=== PATIENT | male | born 1960 | race Caucasian/White ===

== ENCOUNTER 2018-08-28 18:35 | Observation (INO) ==
[2018-08-28] MEDS ORDERED: Isovue-370 500 ML BOTTLE IVP ONE (19:42)
--- NOTE | 2018-08-28 19:46 | Emergency Department Note ---
Disposition Clinical Impression: Mass of gastroesophageal junction Disposition: Admitted As Inpatient Condition: Fair Referrals: NONE,PCP [Primary Care Provider] - Forms: ED Satisfaction Letter, Work/School Release Time of Disposition: 22:26 General Adult HPI - General Chief complaint: ED General Medical Stated complaint: Unable to swallow well Time Seen by Provider: 08/28/18 18:58 Source: patient Mode of arrival: ambulatory Limitations: no limitations Nursing Notes Reviewed: Yes Vital Signs Reviewed: Yes - History of Present Illness Pain Scale: 0 - Related Data Home Medications Medication Instructions Recorded Confirmed No Known Home Drugs 08/28/18 08/28/18 Allergies Allergy/AdvReac Type Severity Reaction Status Date / Time No Known Allergies Allergy Verified 08/28/18 19:26 Past Medical History - Past Medical History Medical history: Reports: no medical history Psychiatric history: Reports: no psych history - Social History Smoking Status: Former smoker Smokeless Tobacco Status: No Alcohol use: Reports: none Drug use: Reports: none Physical Exam - General Limitations: no limitations General appearance: alert, in no apparent distress Course Vital Signs Temperature 97.9 F 08/28/18 18:37 Pulse Rate 74 08/28/18 18:37 Respiratory Rate 16 08/28/18 18:37 Blood Pressure 120/81 08/28/18 18:37 O2 Sat by Pulse Oximetry 97 08/28/18 18:37 Temperature 97.9 F 08/28/18 18:37 Pulse Rate 56 08/28/18 21:19 Respiratory Rate 20 08/28/18 21:19 Blood Pressure 114/80 08/28/18 21:19 O2 Sat by Pulse Oximetry 99 08/28/18 21:19 Oxygen Delivery Oxygen Delivery Room Air Medical Decision Making - Lab Data Result diagrams: 08/28/18 19:49 08/28/18 19:49 Lab Results 08/28/18 08/28/18 Range/Units 19:49 19:49 WBC 10.7 (4.3-11.1) K/mcL RBC 5.69 H (4.19-5.50) M/mcL Hgb 16.8 (12.9-16.9) g/dL Hct 48.4 (37.5-50.1) % MCV 85.1 (83.0-100.0) fL MCH 29.5 (28.0-33.3) pg MCHC 34.7 (31.6-35.5) g/dL RDW 12.9 (11.5-14.5) % Plt Count 267 (140-400) K/mcL MPV 10.7 (9.4-12.4) fL Immature Gran % 0.6 (0-4) % Seg Neutrophils % 72.5 % Lymphocytes % 16.9 % Monocytes % 8.2 % Eosinophils % 1.0 % Basophils % 0.8 % Neutrophils # 7.8 (1.6-8.9) K/mcL Lymphocytes # 1.8 (0.6-4.6) K/mcL Monocytes # 0.9 (0.0-1.3) K/mcL Eosinophils # 0.1 (0.0-0.6) K/mcL Basophils # 0.1 (0.0-0.2) K/mcL Sodium 134 L (136-145) mEq/L Potassium 3.7 (3.5-5.1) mEq/L Chloride 98 (98-107) mEq/L Carbon Dioxide 25 (23-29) mEq/L BUN 51 H (6-20) mg/dL Creatinine 1.57 H (0.70-1.30) mg/dL Est GFR ( Amer) 56 L (> 60) Est GFR (Non-Af Amer) 46 L (> 60) BUN/Creatinine Ratio 32 H (6-26) Glucose 115 H (70-105) mg/dL Calculated Osmolality 293 (280-300) Calcium 9.4 (8.6-10.3) mg/dL Magnesium 2.6 (1.6-2.6) mg/dL Attestation Statement - Attestation Attestation: I have seen this patient with the resident physician, I have personally evaluated this patient. I had reviewed the chart and document dictation by the resident physician and aM in agreement with the information documented by the resident physician. Please see documentation by the resident physician for complete chart including past medical history, family medical history, review of systems, current history and physical and laboratory and imaging studies. I was present for all procedures, provided direct supervision for all procedures, was present for the entirety of all procedures and provided direct guidance during the procedures. Please see documentation by the resident physician for any procedures performed. I have reviewed all interpretations of EKGs, and reviewed all EKGs performed on patient's as well. I have also reviewed reports of imaging as provided by radiology. Patient presented emergency department with chief complaint of progressive increasing difficulty with swallowing for the last 3-4 months states that it started as just difficulty with solids, so he switched to eating things like putting and softer foods, states that over the last 1 week had progression to the point now where he feels like the only thing he can get down is water milk and light broth he cannot even get semi-solids down like putting states that jus t feels like he gets stuck. Patient states that he has no pain. He has had no fevers no chills no cough no sputum production no voice changes he does report a greater than 100 pound weight loss over the last year without trying. He is a prior smoker and quit about 1 year ago. He denies fevers chills or night sweats. He denies headache or neck pain he denies voice changes. He denies difficulty breathing. He denies abdominal pain. He states that it feels like stuff gets stuck at the upper portion of his chest and he points towards his sternal notch and just below where it feels like things get stuck. He has had no hair changes. No hot or cold intolerance. No abdominal pain no black or bloody stool no urinary changes. On physical examination he is in no acute distress, cranial nerves are intact, oropharynx is normal, voice is normal there is no stridor. There is no thyromegaly or obvious palpable mass within the neck. No tracheal deviation. Lungs are clear heart is regular abdomen soft and nontender. Skin is warm dry without rash or petechiae. Patient is handling his secretions without difficulty and reports that while it does feel like he has to swallow hard to get his spit to go down it will go down. Basic laboratory studies were ordered, CT scan of the neck and chest were ordered to evaluate for mass. Basic laboratory studies were within acceptable limits apart from a mildly elevated creatinine of 1.6 with an elevated BUNs of 51, he was revived with IV hydration for this. 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 There are some bilateral pulmonary nodules which are nonspecific. Evidence of coronary artery disease and emphysema. Secondary to patient's progressive difficulty with swallowing, with evidence for a tumor, that is likely causing obstruction, as well as his dehydration he will be admitted to the hospital for further evaluation and management,
[2018-08-28 20:28] LABS: Basophils # 0.1 K/mcL (0.0-0.2); Basophils % 0.8 %; Eosinophils # 0.1 K/mcL (0.0-0.6); Hematocrit 48.4 % (37.5-50.1); Hemoglobin 16.8 g/dL (12.9-16.9); Immature Granulocytes % 0.6 % (0-4); Lymphocytes # 1.8 K/mcL (0.6-4.6); Lymphocytes % 16.9 %; Mean Corpuscular HGB Conc 34.7 g/dL (31.6-35.5); Mean Corpuscular Hemoglobin 29.5 pg (28.0-33.3); Mean Corpuscular Volume 85.1 fL (83.0-100.0); Mean Platelet Volume 10.7 fL (9.4-12.4); Monocytes # 0.9 K/mcL (0.0-1.3); Monocytes % 8.2 %; Neutrophils # 7.8 K/mcL (1.6-8.9); Platelet Count 267 K/mcL (140-400); Red Blood Count 5.69 M/mcL (4.19-5.50); Red Cell Distribution Width 12.9 % (11.5-14.5); Segmented Neutrophils % 72.5 %; White Blood Count 10.7 K/mcL (4.3-11.1)
[2018-08-28 20:41] LABS: Calcium 9.4 mg/dL (8.6-10.3); Magnesium 2.6 mg/dL (1.6-2.6); Potassium 3.7 mEq/L (3.5-5.1)
[2018-08-28] MEDS ORDERED: 0.9 % Sodium Chloride 1,000 ML IVC ONE (20:53)
--- NOTE | 2018-08-28 22:21 | Emergency Department Note ---
Disposition Clinical Impression: Mass of gastroesophageal junction Disposition: Admitted As Inpatient Condition: Fair Time of Disposition: 22:25 General Adult HPI - General Chief complaint: ED General Medical Stated complaint: Unable to swallow well Time Seen by Provider: 08/28/18 18:58 Source: patient Mode of arrival: ambulatory Limitations: no limitations Nursing Notes Reviewed: Yes Vital Signs Reviewed: Yes - History of Present Illness HPI Narrative: Patient is a 57-year-old male former smoker presents to the ED for evaluation of difficulty with swallowing. Patient states that the symptoms have been going on for the past few months. He states that he has been unable to swallow solid foods or large amounts of liquids states he is only able to tolerate sips of liquids otherwise he feels like his food is getting stuck or comes back up. He denies any chest pain, back pain, abdominal pain or other associated symptoms. He does report weight loss of over 100 pounds over the past year. Pain Scale: 0 - Related Data Home Medications Medication Instructions Recorded Confirmed No Known Home Drugs 08/28/18 08/28/18 Allergies Allergy/AdvReac Type Severity Reaction Status Date / Time No Known Allergies Allergy Verified 08/28/18 22:57 All systems ED: reviewed and negative except as stated. Review of Systems: As Per HPI Constitutional: Denies: fever, chills Cardiovascular: Reports: other (Dysphagia). Denies: chest pain, palpitations, dyspnea on exertion Respiratory: Denies: cough, dyspnea, wheezes Past Medical History - Past Medical History Attestation: Yes The following information was validated with the patient. Medical history: Reports: no medical history Psychiatric history: Reports: no psych history - Social History Smoking Status: Former smoker Smokeless Tobacco Status: No Alcohol use: Reports: none Drug use: Reports: none Physical Exam CONSTITUTIONAL: A&O X 3, in no apparent distress HEAD: Normocephalic; atraumatic EYES: PERRL, no scleral icterus NOSE: The nose is normal in appearance without rhinorrhea NECK: No JVD or distended neck veins RESP: Normal chest excursion with respiration; breath sounds clear and equal bilaterally; no wheezes, rhonchi, or rales CARD: Regular rhythm, without murmurs, rub or gallop ABD: Non-distended; non-tender, soft, without rigidity, rebound or guarding,no pulsatile mass CHEST: No pain with palpation SKIN: Normal for age and race; warm and dry without diaphoresis ; no apparent lesions EXTREMITIES: Pulses are 2 plus and equal times 4 extremities, no peripheral edema or calf muscle pain - General Limitations: no limitations General appearance: alert, in no apparent distress Course Course Narrative: Patient presents for admission of difficulty swallowing specially solid foods. Given his history of smoking as well as his weight loss over the past year there is concern for malignancy versus esophageal stricture. Patient undergo evaluation of basic labs and then CT scan to evaluate for mass. - Reevaluation(s) Reevaluation #1: Patient's CT scan findings of the chest and soft tissue of the neck are consistent with a tumor at the GE junction and proximal stomach with metastatic upper abdominal adenopathy mediastinal lymph nodes are indeterminate. Patient also has bilateral pulmonary nodules that are nonspecific. Patient's lab work was significant for elevation of creatinine and decreased GFR which I am unsure of patient's baseline however he does also have elevation of his BUNs suspect component of dehydration given his inability to tolerate by mouth. Discussed with patient given his symptoms need to come in for further evaluation. Vital Signs Temperature 97.9 F 08/28/18 18:37 Pulse Rate 74 08/28/18 18:37 Respiratory Rate 16 08/28/18 18:37 Blood Pressure 120/81 08/28/18 18:37 O2 Sat by Pulse Oximetry 97 08/28/18 18:37 Temperature 97.9 F 08/28/18 18:37 Pulse Rate 56 08/28/18 21:19 Respiratory Rate 20 08/28/18 21:19 Blood Pressure 114/80 08/28/18 21:19 O2 Sat by Pulse Oximetry 99 08/28/18 21:19 Oxygen Delivery Oxygen Delivery Room Air Medical Decision Making - Medical Records Medical records reviewed: Yes I reviewed the patient's medical records. - Lab Data Lab results reviewed: Yes I reviewed the patient's lab results. Result diagrams: 08/28/18 19:49 08/29/18 01:13 Lab Results 08/28/18 08/28/18 Range/Units 19:49 19:49 WBC 10.7 (4.3-11.1) K/mcL RBC 5.69 H (4.19-5.50) M/mcL Hgb 16.8 (12.9-16.9) g/dL Hct 48.4 (37.5-50.1) % MCV 85.1 (83.0-100.0) fL MCH 29.5 (28.0-33.3) pg MCHC 34.7 (31.6-35.5) g/dL RDW 12.9 (11.5-14.5) % Plt Count 267 (140-400) K/mcL MPV 10.7 (9.4-12.4) fL Immature Gran % 0.6 (0-4) % Seg Neutrophils % 72.5 % Lymphocytes % 16.9 % Monocytes % 8.2 % Eosinophils % 1.0 % Basophils % 0.8 % Neutrophils # 7.8 (1.6-8.9) K/mcL Lymphocytes # 1.8 (0.6-4.6) K/mcL Monocytes # 0.9 (0.0-1.3) K/mcL Eosinophils # 0.1 (0.0-0.6) K/mcL Basophils # 0.1 (0.0-0.2) K/mcL Sodium 134 L (136-145) mEq/L Potassium 3.7 (3.5-5.1) mEq/L Chloride 98 (98-107) mEq/L Carbon Dioxide 25 (23-29) mEq/L BUN 51 H (6-20) mg/dL Creatinine 1.57 H (0.70-1.30) mg/dL Est GFR ( Amer) 56 L (> 60) Est GFR (Non-Af Amer) 46 L (> 60) BUN/Creatinine Ratio 32 H (6-26) Glucose 115 H (70-105) mg/dL Calculated Osmolality 293 (280-300) Calcium 9.4 (8.6-10.3) mg/dL Magnesium 2.6 (1.6-2.6) mg/dL - Radiology Data Radiology results reviewed: Yes I reviewed the patient's radiology results. Chest CT 08/28/18 19:42 IMPRESSION: 1. 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 Mediastinal lymph nodes are indeterminate. 2. Bilateral pulmonary nodules are nonspecific. These are mostly flattened nodules which is somewhat unusual for metastatic disease and may represent benign nodules. Fleischner criteria do not apply in a patient with a primary tumor. 3. Coronary artery disease. 4. Emphysema. 5. Secretion or tracheal polyp. Attention on follow-up imaging is recommended. D/ / Jeffy Gregory MD / Jeffy Gregory MD Interpreting Provider: Jeffy Gregory MD Soft Tissue Neck CT 08/28/18 19:42 IMPRESSION: No acute abnormality of the soft tissue structures of the neck. Fluid distension of the entire visualized intrathoracic esophagus. Correlation with CT chest performed today is recommended. Distal obstructing mass is a concern. Endoscopy is recommended. Emphysema. Enlarged mediastinal lymph node. D/ / Edda Zayas Cha, MD / Edda Zayas Cha, MD Interpreting Provider: Edda Zayas Cha, MD Attestation Statement - Attestation Attestation: I have seen this patient with the resident physician, I have personally evaluated this patient. I had reviewed the chart and document dictation by the resident physician and aM in agreement with the information documented by the resident physician. Please see documentation by the resident physician for complete chart including past medical history, family medical history, review of systems, current history and physical and laboratory and imaging studies. I was present for all procedures, provided direct supervision for all procedures, was present for the entirety of all procedures and provided direct guidance during the procedures. Please see documentation by the resident physician for any procedures performed. I have reviewed all interpretations of EKGs, and reviewed all EKGs performed on patient's as well. I have also reviewed reports of imaging as provided by radiology.
--- NOTE | 2018-08-29 01:09 | Internal Med History&Physical ---
Date of Encounter: 08/29/18 Time of Encounter: 01:07 Internal Medicine - H&P: HPI Chief complaint: dysphagia Admitted From: Home Plans for Post Hospital Care: Home History of present illness: Manjeet Gonzales is a 57-year-old man who reports a greater than 2 pack a day smoking history for more than 30 years and quit one year ago but since then has noticed progressive unintentional weight loss. He says he has lost about 100 pounds in this time. He also complains of difficulty swallowing over the past several months initially with solid food being able to go down and now more recently with soft items such as pudding and mashed potatoes. He is now only able to tolerate clear liquids. He says even if he were to take broth or milk he will need to take it in very slowly. He says when he does take substances with more consistency he would regurgitate them after a long period of time and noticed a pasty foul smelling content. 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 He is admitted for further care. He denies any medical history and says he has not seen a doctor in over 15 years. Vitals: Reviewed General: White man who appears older than stated age, lying in bed in no acute distress. Skin: Warm and dry. Pale. HEENT: Moist mucous membranes. No conjunctivae pallor. Neck: No JVD. No carotid bruits. No palpable thyroid. Chest: Normal thoracic expansion. Normal breath sounds. Clear to auscultation. Heart: Normal S1 & S2; rhythmic. No rubs or murmurs. Abdomen: Excavated, soft and nontender to palpation. Extremities: No cyanosis or edema. No calf tenderness. Normal distal pulses. Neurological: Awake, alert and oriented to person, place and time. No focal deficits. Psych: Affect appropriate. Assessment/Plan 1. Dysphagia: Initially to solids and now to liquids in a patient with longstanding smoking history accompanied by 100lbs weight loss giving concerns for an esophageal malignancy. Findings on CT suggest this. Will need GI consultation for a diagnostic endoscopy to be performed today. Will ultimately require oncology and palliative consultations. Will place on D5LR, clear liquids as tolerated and nutrition consult. 2. DVT prophylaxis: Subq heparin. Past Med Surg Social Fam HX - Past Medical History Medical history: no medical history Psychiatric history: no psych history - Past Surgical History Surgical History: no surgical history - Social History Smoking Status: Former smoker Smokeless Tobacco Status: No Alcohol use: none Drug use: none - Family History Father Living Status: Age at : 59 Hx Family Cancer: Yes Mother Living Status: Still Living Hx Family Cancer: Yes (skin cancer) Internal Medicine - H&P: Meds No Known Home Drugs 08/28/18 [History] Allergy/AdvReac Type Severity Reaction Status Date / Time No Known Allergies Allergy Verified 08/28/18 22:57 All Systems PM: A 10-system review of systems was performed and is negative for pertinent findings except as documented above in the HPI. Family history reviewed and found non-contributory. - Constitutional Vitals: Temp Pulse Resp BP Pulse Ox 97.6 F 60 17 127/79 96 08/28/18 23:57 08/28/18 23:57 08/28/18 23:57 08/28/18 23:57 08/28/18 23:57 Exam: . Internal Med - H&P Results - Labs CBC & Chem 7: 08/28/18 19:49 08/28/18 19:49 Labs: Short CBC 08/28/18 Range/Units 19:49 WBC 10.7 (4.3-11.1) K/mcL Hgb 16.8 (12.9-16.9) g/dL Hct 48.4 (37.5-50.1) % Plt Count 267 (140-400) K/mcL Neutrophils # 7.8 (1.6-8.9) K/mcL BMP 08/28/18 19:49 Sodium 134 L Potassium 3.7 Chloride 98 Carbon Dioxide 25 BUN 51 H Creatinine 1.57 H Glucose 115 H Calcium 9.4 - Impressions ITS Impressions Chest CT 08/28/18 19:42 IMPRESSION: 1. 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 Mediastinal lymph nodes are indeterminate. 2. Bilateral pulmonary nodules are nonspecific. These are mostly flattened nodules which is somewhat unusual for metastatic disease and may represent benign nodules. Fleischner criteria do not apply in a patient with a primary tumor. 3. Coronary artery disease. 4. Emphysema. 5. Secretion or tracheal polyp. Attention on follow-up imaging is recommended. D/ / Jeffy Gregory MD / Jeffy Gregory MD Interpreting Provider: Jeffy Gregory MD Soft Tissue Neck CT 08/28/18 19:42 IMPRESSION: No acute abnormality of the soft tissue structures of the neck. Fluid distension of the entire visualized intrathoracic esophagus. Correlation with CT chest performed today is recommended. Distal obstructing mass is a concern. Endoscopy is recommended. Emphysema. Enlarged mediastinal lymph node. D/ / Edda Zayas Cha, MD / Edda Zayas Cha, MD Interpreting Provider: Edda Zayas Cha, MD - Time Spent With Patient Total time spent is greater than 50% in coordination of care (as documented) at patient's floor/unit and/or counseling patient: Greater than 35 minutes
[2018-08-29] MEDS: D5% in Lactated Ringers 1,000 ML IVC SCH ×2 (01:30→11:55)
[2018-08-29 01:55] LABS: INR 1.3; Prothrombin Time 14.4 Seconds (9.4-12.1)
[2018-08-29 01:57] LABS: Activated Partial Thrombo Time 31.6 Seconds (26.0-36.0)
[2018-08-29 02:09] LABS: BUN/Creatinine Ratio 31 (6-26); Blood Urea Nitrogen 45 mg/dL (6-20); Calcium 8.9 mg/dL (8.6-10.3); Carbon Dioxide 25 mEq/L (23-29); Chloride 101 mEq/L (98-107); Glucose 95 mg/dL (70-105); Osmolality,Calculated 293 (280-300); Potassium 3.4 mEq/L (3.5-5.1); Sodium 136 mEq/L (136-145); eGFR For African Americans > 60 (> 60); eGFR For Non-African Americans 50 (> 60)
[2018-08-29] MEDS ORDERED: Potassium Chloride Elixir 20 MEQ/15 ML UDC PO ONE (03:37)
[2018-08-29] MEDS: *HR* Heparin 5,000 UNIT/ML VIAL SQ SCH ×2 (06:09→18:03)
--- NOTE | 2018-08-29 09:39 | Internal Med Progress Note ---
<Harley Christina - Last Filed: 08/29/18 16:56> Hospitalist Progress Note - Encounter Date of Encounter: 08/29/18 Time of Encounter: 09:36 - Subjective Interval History: Pt seen and examined. Afebrile, lying comfortably in bed. Denies any pain, SOB, constipation, diarrhea, abdominal pain. Reports increased urination since starting IV fluids. Plan for EGD today, due to esophageal/gastric mass. Pt reports symptoms frst began arouind 6 months ago with vomiting following meals. He has lost about 100 lbs over the past year. He says wweight loss began after he quit smoking in August 2017, since then his energy has improved, and he has felt more healthy overall. - Exam Vitals: Temp Pulse Resp BP Pulse Ox 98 F 64 16 118/74 97 08/29/18 07:00 08/29/18 07:00 08/29/18 07:00 08/29/18 07:00 08/29/18 07:00 Exam: Gen: Vitals noted. No acute distress. Eyes: anicteric sclerae, moist conjunctivae; no lid-lag; Pupils equal and reactive to light HENT: Atraumatic, normocephalic; oropharynx clear with moist mucous membranes and no mucosal ulcerations Neck: Trachea midline; supple, no thyromegaly or lymphadenopathy Cardiac: RRR, no murmurs, rubs or gallops, S1/S2 Pulmonary: CTA bilaterally, no wheezes, rales or rhonchi, equal chest expansion Abdomen: soft, concave, non-tender, no rigidity or guarding. No masses or hepatosplenomegaly MSK: ROM intact, no joint swelling noted Extremities: no BLE edema, nontender calf, no cyanosis or clubbing Skin: Normal temperature, turgor and texture; no rash, ulcers or subcutaneous nodules Neuro: moves all extremities, no focal deficits. Psych: Appropriate mood and behavior. A&Ox3 - Assessment and Plan (1) Mass of gastroesophageal junction Current Visit: Yes Status: Acute Assessment and Plan: Mass of esophageal junction -Hx of progressively worsening dysphagia -Only able to tolerate thin liquids for the past few days -~100 lb weight loss over the past 8 months -CT chest: Tumor at gartroesophageal junction and proximal stomach -GI consult: EGD to rule out esophagitis, malignancy, gastritis, duodenitis, PUD, MW tear, or AVM. Plan: -EGD: Malignant appearing mass in distal esophagus. Biopsies for histology and brushes for cytology taken -Full liquid diet+ensure -Plan for follow-up with Heme/onc with path report (2) Protein calorie malnutrition Current Visit: Yes Status: Acute Assessment and Plan: Pt presenting with dysphasia -Dietitian assessment: Severe protein-calorie malnutrition -Can tolerate clear liquids very slowly Plan: -Try ensure clear/enlive -6-7 bottles per day DVT Prophylaxis: SQ Heparin - Summary of Assessment and Plan Summary of Assessment and Plan: 57 yo male with no significant PMH. Presenting with dysphagia. Esphogeal/proximal stomach mass noted on CT. Going for EGD. - Time Spent with Patient Total time spent is greater than 50% in coordination of care (as documented) at patient's floor/unit and/or counseling patient: Internal Medicine: Result - Labs CBC & Chem 7: 08/28/18 19:49 08/29/18 01:13 Labs: Short CBC 08/28/18 Range/Units 19:49 WBC 10.7 (4.3-11.1) K/mcL Hgb 16.8 (12.9-16.9) g/dL Hct 48.4 (37.5-50.1) % Plt Count 267 (140-400) K/mcL Neutrophils # 7.8 (1.6-8.9) K/mcL BMP 08/28/18 08/29/18 19:49 01:13 Sodium 134 L 136 Potassium 3.7 3.4 L Chloride 98 101 Carbon Dioxide 25 25 BUN 51 H 45 H Creatinine 1.57 H 1.47 H Glucose 115 H 95 Calcium 9.4 8.9 - ABG Interpretation ABG results: PT/INR, D-dimer PT 14.4 Seconds (9.4-12.1) H 08/29/18 01:13 - Impressions Impressions Chest CT 08/28/18 19:42 IMPRESSION: 1. 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 Mediastinal lymph nodes are indeterminate. 2. Bilateral pulmonary nodules are nonspecific. These are mostly flattened nodules which is somewhat unusual for metastatic disease and may represent benign nodules. Fleischner criteria do not apply in a patient with a primary tumor. 3. Coronary artery disease. 4. Emphysema. 5. Secretion or tracheal polyp. Attention on follow-up imaging is recommended. D/ / Jeffy Gregory MD / Jeffy Gregory MD Interpreting Provider: Jeffy Gregory MD Soft Tissue Neck CT 08/28/18 19:42 IMPRESSION: No acute abnormality of the soft tissue structures of the neck. Fluid distension of the entire visualized intrathoracic esophagus. Correlation with CT chest performed today is recommended. Distal obstructing mass is a concern. Endoscopy is recommended. Emphysema. Enlarged mediastinal lymph node. D/ / Edda Zayas Cha, MD / Edda Zayas Cha, MD Interpreting Provider: Edda Zayas Cha, MD Consult Discharge Plan - Plan Referrals: NONE,PCP [Primary Care Provider] - <Rufino Bundy - Last Filed: 08/29/18 18:43> Hospitalist Progress Note - Encounter Date of Encounter: 08/29/18 - Exam Vitals: Temp Pulse Resp BP Pulse Ox 97.6 F 44 18 108/65 96 08/29/18 17:15 08/29/18 17:15 08/29/18 17:15 08/29/18 17:15 08/29/18 17:15 - Time Spent with Patient Total time spent is greater than 50% in coordination of care (as documented) at patient's floor/unit and/or counseling patient: Internal Medicine: Result - Labs CBC & Chem 7: 08/28/18 19:49 08/29/18 01:13 Labs: Short CBC 08/28/18 Range/Units 19:49 WBC 10.7 (4.3-11.1) K/mcL Hgb 16.8 (12.9-16.9) g/dL Hct 48.4 (37.5-50.1) % Plt Count 267 (140-400) K/mcL Neutrophils # 7.8 (1.6-8.9) K/mcL BMP 08/28/18 08/29/18 19:49 01:13 Sodium 134 L 136 Potassium 3.7 3.4 L Chloride 98 101 Carbon Dioxide 25 25 BUN 51 H 45 H Creatinine 1.57 H 1.47 H Glucose 115 H 95 Calcium 9.4 8.9 - ABG Interpretation ABG results: PT/INR, D-dimer PT 14.4 Seconds (9.4-12.1) H 08/29/18 01:13 - Impressions Impressions Chest CT 08/28/18 19:42 IMPRESSION: 1. 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 Mediastinal lymph nodes are indeterminate. 2. Bilateral pulmonary nodules are nonspecific. These are mostly flattened nodules which is somewhat unusual for metastatic disease and may represent benign nodules. Fleischner criteria do not apply in a patient with a primary tumor. 3. Coronary artery disease. 4. Emphysema. 5. Secretion or tracheal polyp. Attention on follow-up imaging is recommended. D/ / Jeffy Gregory MD / Jeffy Gregory MD Interpreting Provider: Jeffy Gregory MD Soft Tissue Neck CT 08/28/18 19:42 IMPRESSION: No acute abnormality of the soft tissue structures of the neck. Fluid distension of the entire visualized intrathoracic esophagus. Correlation with CT chest performed today is recommended. Distal obstructing mass is a concern. Endoscopy is recommended. Emphysema. Enlarged mediastinal lymph node. D/ / Edda Zayas Cha, MD / Edda Zayas Cha, MD Interpreting Provider: Edda Zayas Cha, MD - Attending Attestation I have seen and independently assessed this patient and I agree with plan as documented Plan Esophageal mass. S/p endoscopy today showing malignant appearing stenosis. Barium swallow in am per GI. Check CEA levels
--- NOTE | 2018-08-29 12:34 | Gastroenterology Consult Note ---
Date of Encounter: 08/29/18 Time of Encounter: 10:20 - Assessment and plan (1) Mass of gastroesophageal junction Current Visit: Yes Status: Acute Assessment and plan: CT chest consistent with tumor at GE junction and proximal stomach with metastatic abdominal adenopathy. CT neck soft tissue shows fluid distention of entire visualized intrathoracic esophagus concerning for distal obstructing mass. Keep patient NPO. EGD today to r/o esophagitis, malignancy, gastritis, duodenitis, PUD, MW tear, or AVM. - Time Spent With Patient Total time spent is greater than 50% in coordination of care (as documented) at patient's floor/unit and/or counseling patient: GI History of Present Illness - Data of Consult Patient: new to practice Consult date: 08/29/18 Requesting Physician: Blade Schilling MD - Consult Narrative Reason for consult: 100 lbs weight loss, dysphagia History of present illness: Mr. Gonzales is a 57 year old male with PMHx of greater than 2 pack a day smoking history for more than 30 years and quit one year ago but since then has noticed progressive unintentional weight loss of over 100 lbs. He also complains of difficulty swallowing which has worsened over the past few months. He is now only able to tolerate clear liquids. CT chest consistent with tumor at GE junction and proximal stomach with metastatic abdominal adenopathy. CT neck soft tissue shows fluid distention of entire visualized intrathoracic esophagus concerning for distal obstructing mass. Procedures: None NSAIDs: None Anticoagulation: None Past Med Surg Social Fam HX - Past Medical History Medical history: no medical history Psychiatric history: no psych history - Past Surgical History Surgical History: no surgical history - Social History Smoking Status: Former smoker Smokeless Tobacco Status: No Alcohol use: none Drug use: none - Family History Father Living Status: Age at : 59 Hx Family Cancer: Yes Mother Living Status: Still Living Hx Family Cancer: Yes (skin cancer) - Gastrointestinal Gastrointestinal: Present: as per HPI - Constitutional Constitutional: as per HPI - EENT Eyes: as per HPI Ears: Present: as per HPI Nose, mouth and throat: Present: as per HPI - Cardiovascular Cardiovascular ROS: Present: as per HPI - Respiratory Respiratory IM: Present: as per HPI - Genitourinary Genitourinary: Absent: change in color, Urinary frequency - Neurological ROS Neurological GI: Present: as per HPI - Hematologic/Lymphatic Hematologic/Lymphatic pediatric: Present: as per HPI - Musculoskeletal Musculoskeletal ROS GI: Present: as per HPI - Integumentary Integumentary GI: Present: as per HPI - Psychiatric ROS Psychiatric GI: Present: as per HPI - Endocrine Endocrine IM: Present: as per HPI - Constitutional Vitals: Temp Pulse Resp BP Pulse Ox 97.9 F 58 16 107/58 96 08/29/18 10:49 08/29/18 10:49 08/29/18 10:49 08/29/18 10:49 08/29/18 10:49 General appearance: Present: cooperative, A&O X 3, no acute distress, answers questions appropriately - Head Head exam: Present: atraumatic, normocephalic - Eye Eye exam: Present: normal appearance, sclera anicteric - ENT ENT exam: Present: mucous membranes moist - Neck Neck exam general surgery: Present: normal inspection, trachea midline - Respiratory Respiratory exam: Present: decreased breath sounds, CTAB - Cardiovascular Cardiovascular exam: Present: RRR, +S1, +S2 - GI/Abdominal GI/Abdominal exam: Present: soft, no peritoneal signs. Absent: distended, firm, guarding, tenderness - Rectal Rectal exam: Present: deferred - Extremities Exam Extremities exam: Present: warm - Neurological Exam Neurological exam: Present: no focal deficits - Psychiatric Psychiatric exam: Present: normal affect, normal mood - Skin Skin exam: Present: dry, intact, normal color, warm Results - Labs CBC & Chem 7: 08/28/18 19:49 08/29/18 01:13 Labs: Last Result 08/29/18 01:13 Calcium 8.9 Entire Visit 08/29/18 01:13 PT 14.4 H - ABG ABG results: PT/INR, D-dimer PT 14.4 Seconds (9.4-12.1) H 08/29/18 01:13 - Impressions Impressions Chest CT 08/28/18 19:42 IMPRESSION: 1. 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 Mediastinal lymph nodes are indeterminate. 2. Bilateral pulmonary nodules are nonspecific. These are mostly flattened nodules which is somewhat unusual for metastatic disease and may represent benign nodules. Fleischner criteria do not apply in a patient with a primary tumor. 3. Coronary artery disease. 4. Emphysema. 5. Secretion or tracheal polyp. Attention on follow-up imaging is recommended. D/ / Jeffy Gregory MD / Jeffy Gregory MD Interpreting Provider: Jeffy Gregory MD Soft Tissue Neck CT 08/28/18 19:42 IMPRESSION: No acute abnormality of the soft tissue structures of the neck. Fluid distension of the entire visualized intrathoracic esophagus. Correlation with CT chest performed today is recommended. Distal obstructing mass is a concern. Endoscopy is recommended. Emphysema. Enlarged mediastinal lymph node. D/ / Edda Zayas Cha, MD / Edda Zayas Cha, MD Interpreting Provider: Edda Zayas Cha, MD Consult Discharge Plan - Plan Referrals: NONE,PCP [Primary Care Provider] -
[2018-08-29] MEDS ORDERED: *HR* Propofol 200 MG/20 ML VIAL IVP ONE ×2 (13:45→13:54)
[2018-08-29] MEDS ORDERED: Lidocaine -MPF 2% 2 ML VIAL ONE (13:54)
[2018-08-29] MEDS: 0.9 % Sodium Chloride 500 ML IVC SCH (14:25)
--- NOTE | 2018-08-29 14:27 | Anesthesia Evaluation PreOp ---
Date of Encounter: 08/29/18 Time of Encounter: 14:25 - Past History Planned Operation: EGD Cardiac History: Denies any Significant Hx Pulmonary History: Former smoker (quit 1 year ago, smoked for 40 years) WATER CHASER History: Denies Any Significant HX Other Medical History: Denies Any Significant HX Anesthesia History: Past Anesthesia (no prior GA) Alcohol Use: none Drug use: none Medications and Allergies No Known Home Drugs 08/28/18 [History] Allergy/AdvReac Type Severity Reaction Status Date / Time No Known Allergies Allergy Verified 08/28/18 22:57 - Meds/Allergy Pre-op Review Medications Reviewed: Yes Allergies Reviewed: Yes Beta Blockers on Current Med List: No Anesthesia Results - Labs 08/28/18 19:49 08/29/18 01:13 Anesthesia Exam Vital Signs/O2 Sat/Glucose, Most Recent Temp Pulse Resp BP Pulse Ox 97.9 F 50 16 117/76 97 08/29/18 10:49 08/29/18 14:21 08/29/18 14:21 08/29/18 14:21 08/29/18 14:21 Blood Glucose* 80 Height: 5'11''/1.8m Weight: 166 lbs/75.7 kg NPO (# of Hours): 8 Pain Scale: 0 Pain Scale Used: Numeric (1 - 10) - HEENT Pupil (Motor): EOMI Mallampati: II Teeth: Normal, Missing Oral Opening: Greater than 3 - WATER CHASER LOC: Oriented WATER CHASER Motor: Normal RUE, Normal LUE, Normal RLE, Normal LLE, Normal Face WATER CHASER Sensory: Normal: RUE, LUE, RLE, LLE, Face - Cardiac Rhythm: Regular Murmur: None - Pulmonary Breath Sounds: bilateral Clear Respiratory Effort: Symmetrical Anesthesia Assess/Plan ASA Score: 2 Level of consciousness: Cooperative, Oriented, Tranquil Anesthetic Plan: MAC Monitoring Plan: Standard Monitors
[2018-08-30] MEDS: 0.9 % Sodium Chloride 500 ML IVC SCH ×3 (00:39→22:29)
[2018-08-30 01:46] LABS: Basophils % 0.7 %; Eosinophils # 0.2 K/mcL (0.0-0.6); Eosinophils % 2.8 %; Hematocrit 39.4 % (37.5-50.1); Immature Granulocytes % 0.3 % (0-4); Lymphocytes # 1.8 K/mcL (0.6-4.6); Lymphocytes % 29.7 %; Mean Corpuscular HGB Conc 35.3 g/dL (31.6-35.5); Mean Corpuscular Hemoglobin 30.1 pg (28.0-33.3); Mean Corpuscular Volume 85.3 fL (83.0-100.0); Mean Platelet Volume 10.5 fL (9.4-12.4); Monocytes # 0.5 K/mcL (0.0-1.3); Monocytes % 7.8 %; Neutrophils # 3.6 K/mcL (1.6-8.9); Platelet Count 177 K/mcL (140-400); Red Blood Count 4.62 M/mcL (4.19-5.50); Segmented Neutrophils % 58.7 %; White Blood Count 6.1 K/mcL (4.3-11.1)
[2018-08-30 01:48] LABS: Hemoglobin 13.9 g/dL (12.9-16.9)
[2018-08-30 02:05] LABS: BUN/Creatinine Ratio 28 (6-26); Blood Urea Nitrogen 25 mg/dL (6-20); Carbon Dioxide 24 mEq/L (23-29); Chloride 107 mEq/L (98-107); Glucose 86 mg/dL (70-105); Osmolality,Calculated 290 (280-300); Potassium 3.3 mEq/L (3.5-5.1); Sodium 138 mEq/L (136-145); eGFR For African Americans > 60 (> 60); eGFR For Non-African Americans > 60 (> 60)
[2018-08-30] MEDS: *HR* Heparin 5,000 UNIT/ML VIAL SQ SCH ×2 (05:52→16:47)
--- NOTE | 2018-08-30 08:34 | Internal Med Progress Note ---
<Harley Christina - Last Filed: 08/30/18 17:39> Hospitalist Progress Note - Encounter Date of Encounter: 08/30/18 Time of Encounter: 08:33 - Subjective Interval History: Patient seen and examined. Reports feeling about the same this morning. He attempted to eat last night for liquid diet with ensure, could not keep it down and vomited most of it up. Patient informed of EGD results noting mass in distal esophagus and proximal stomach. Patient denies headache, fever, chills, shortness of breath, abdominal pain, constipation, diarrhea, change in urination. Patient will have barium swallow performed this morning. - Exam Vitals: Temp Pulse Resp BP Pulse Ox 98.5 F 58 16 134/67 96 08/30/18 06:30 08/30/18 06:30 08/30/18 06:30 08/30/18 06:30 08/30/18 06:30 Exam: Gen: Vitals noted. No acute distress. Eyes: anicteric sclerae, moist conjunctivae; no lid-lag; Pupils equal and reactive to light HENT: Atraumatic, normocephalic; oropharynx clear with moist mucous membranes and no mucosal ulcerations Neck: Trachea midline; supple, no thyromegaly or lymphadenopathy Cardiac: RRR, no murmurs, rubs or gallops, S1/S2 Pulmonary: CTA bilaterally, no wheezes, rales or rhonchi, equal chest expansion Abdomen: soft, concave, non-tender, no rigidity or guarding. No masses or hepatosplenomegaly MSK: ROM intact, no joint swelling noted Extremities: no BLE edema, nontender calf, no cyanosis or clubbing Skin: Normal temperature, turgor and texture; no rash, ulcers or subcutaneous nodules Neuro: moves all extremities, no focal deficits. Psych: Appropriate mood and behavior. A&Ox3 - Assessment and Plan (1) Mass of gastroesophageal junction Current Visit: Yes Status: Acute Assessment and Plan: Mass of esophageal junction -Hx of progressively worsening dysphagia -Only able to tolerate thin liquids for the past few days -~100 lb weight loss over the past 8 months -CT chest: Tumor at gartroesophageal junction and proximal stomach -GI consult: EGD: Malignant appearing esophageal mass -Barium swallow: no contrast passing into stomach Plan: -Path pending -Full liquid diet+ensure -Plan for follow-up with Heme/onc with path report -Attempt liquid diet -may need to consult surgery for Feeding tube (2) Protein calorie malnutrition Current Visit: Yes Status: Acute Assessment and Plan: Pt presenting with dysphasia -Dietitian assessment: Severe protein-calorie malnutrition -Can tolerate clear liquids very slowly -Dietary following Plan: -Try ensure clear/enlive -6-7 bottles per day -May need surgical intervention for feeding tube (3) Hypokalemia Current Visit: Yes Status: Acute Assessment and Plan: Hypokalemia -secondary to reduced PO intake Plan: -Replace as needed -Follow up BMP DVT Prophylaxis: SQ Heparin - Summary of Assessment and Plan Summary of Assessment and Plan: 57 yo male with no significant PMH. Presenting with dysphagia. Esphogeal/pro ximal stomach mass noted on CT. EDG performed, awaiting path results. - Time Spent with Patient Total time spent is greater than 50% in coordination of care (as documented) at patient's floor/unit and/or counseling patient: Internal Medicine: Result - Labs CBC & Chem 7: 08/30/18 00:56 08/30/18 00:56 Labs: Short CBC 08/30/18 Range/Units 00:56 WBC 6.1 (4.3-11.1) K/mcL Hgb 13.9 D (12.9-16.9) g/dL Hct 39.4 (37.5-50.1) % Plt Count 177 (140-400) K/mcL Neutrophils # 3.6 (1.6-8.9) K/mcL BMP 08/30/18 00:56 Sodium 138 Potassium 3.3 L Chloride 107 Carbon Dioxide 24 BUN 25 H Creatinine 0.90 Glucose 86 Calcium 8.0 L - ABG Interpretation ABG results: PT/INR, D-dimer PT 14.4 Seconds (9.4-12.1) H 08/29/18 01:13 Consult Discharge Plan - Plan Referrals: NONE,PCP [Primary Care Provider] - <Rufino Bundy - Last Filed: 08/30/18 18:33> Hospitalist Progress Note - Encounter Date of Encounter: 08/30/18 - Exam Vitals: Temp Pulse Resp BP Pulse Ox 99.1 F 52 16 111/61 94 08/30/18 11:04 08/30/18 11:04 08/30/18 11:04 08/30/18 11:04 08/30/18 11:04 - Time Spent with Patient Total time spent is greater than 50% in coordination of care (as documented) at patient's floor/unit and/or counseling patient: Internal Medicine: Result - Labs CBC & Chem 7: 08/30/18 00:56 08/30/18 00:56 Labs: Short CBC 08/30/18 Range/Units 00:56 WBC 6.1 (4.3-11.1) K/mcL Hgb 13.9 D (12.9-16.9) g/dL Hct 39.4 (37.5-50.1) % Plt Count 177 (140-400) K/mcL Neutrophils # 3.6 (1.6-8.9) K/mcL BMP 08/30/18 00:56 Sodium 138 Potassium 3.3 L Chloride 107 Carbon Dioxide 24 BUN 25 H Creatinine 0.90 Glucose 86 Calcium 8.0 L - ABG Interpretation ABG results: PT/INR, D-dimer PT 14.4 Seconds (9.4-12.1) H 08/29/18 01:13 - Impressions Impressions Barium Swallow X-Ray 08/30/18 07:00 IMPRESSION: 1. No obvious mucosal abnormality is identified on single contrast evaluation. 2. Significant narrowing at the GE junction. No contrast passed from the esophagus into the stomach after 7 minutes. The exam was then terminated. 3. Barium pill was not assessed due to inability of liquids to pass beyond the GE junction. D/ / 08/30/2018 10:26:10 [place] Nava MD / yolanda Interpreting Provider: [place] Nava MD - Attending Attestation I have seen and independently assessed this patient and I agree with plan as documented Plan Esophageal mass. S/p endoscopy today showing malignant appearing stenosis. Barium swallow performed today showed significant stenosis. Discussed with GI, james continue liquid diet and if he tolerates, will f/u outpatient with GI for coordination of oncology and surgery f/u, otherwise may need pEG tube inpatient
[2018-08-30] MEDS ORDERED: Potassium Phosphate 44 MEQ in 0.9 % Sodium Chloride 250 ML IVPB ONE (08:35)
[2018-08-30] MEDS ORDERED: E-Z-HD (BARIUM SULF) SUSPENSION PO ONE (09:29)
[2018-08-30] MEDS ORDERED: Simethicone/Sodium Bic/Citr Ac 1 EACH GRAN.EF.PK PO ONE (09:29)
[2018-08-31 02:42] LABS: BUN/Creatinine Ratio 26 (6-26); Blood Urea Nitrogen 26 mg/dL (6-20); Calcium 8.3 mg/dL (8.6-10.3); Carbon Dioxide 24 mEq/L (23-29); Chloride 107 mEq/L (98-107); Glucose 71 mg/dL (70-105); Osmolality,Calculated 293 (280-300); Potassium 3.8 mEq/L (3.5-5.1); Sodium 140 mEq/L (136-145); eGFR For African Americans > 60 (> 60); eGFR For Non-African Americans > 60 (> 60)
[2018-08-31] MEDS: *HR* Heparin 5,000 UNIT/ML VIAL SQ SCH (05:31)
[2018-08-31] MEDS: 0.9 % Sodium Chloride 500 ML IVC SCH (05:31)
--- NOTE | 2018-08-31 08:56 | Internal Med Progress Note ---
<CarriHarley L - Last Filed: 08/31/18 08:57> Hospitalist Progress Note - Encounter Date of Encounter: 08/31/18 Time of Encounter: 08:54 - Subjective Interval History: She is seen and examined this morning. Afebrile, no overnight events. Patient reports feeling well this morning. He has been able to keep down some liquids, including whole milk, coffee, and ensure. He has not been able to keep down any thicker foods such as oatmeal. Denies headache, shortness of breath, abdominal pain, constipation, diarrhea, changes in urination. - Exam Vitals: Temp Pulse Resp BP Pulse Ox 97.6 F 66 18 119/77 98 08/31/18 06:31 08/31/18 06:31 08/31/18 06:31 08/31/18 06:31 08/31/18 06:31 Exam: Gen: Vitals noted. No acute distress. Sitting comfortably on edge of bed Eyes: anicteric sclerae, moist conjunctivae; no lid-lag; Pupils equal and reactive to light HENT: Atraumatic, normocephalic; oropharynx clear with moist mucous membranes and no mucosal ulcerations Neck: Trachea midline; supple, no thyromegaly or lymphadenopathy Cardiac: RRR, no murmurs, rubs or gallops, S1/S2 Pulmonary: CTA bilaterally, no wheezes, rales or rhonchi, equal chest expansion Abdomen: soft, concave, non-tender, no rigidity or guarding. No masses or hepa tosplenomegaly MSK: ROM intact, no joint swelling noted Extremities: no BLE edema, Some patches of darkened skin on lower extremities. Pt says his legs have always been this way Skin: Normal temperature, turgor and texture; no rash, ulcers or subcutaneous nodules Neuro: moves all extremities, no focal deficits. Psych: Appropriate mood and behavior. A&Ox3 - Assessment and Plan (1) Mass of gastroesophageal junction Current Visit: Yes Status: Acute Assessment and Plan: Mass of esophageal junction -Hx of progressively worsening dysphagia -Only able to tolerate thin liquids for the past few days -~100 lb weight loss over the past 8 months -CT chest: Tumor at gartroesophageal junction and proximal stomach -GI consult: EGD: Malignant appearing esophageal mass -Barium swallow: no contrast passing into stomach Plan: -Path pending -Full liquid diet+ensure -Plan for follow-up with Heme/onc with path report -Attempt liquid diet -may need to consult surgery for Feeding tube (2) Protein calorie malnutrition Current Visit: Yes Status: Acute Assessment and Plan: Pt presenting with dysphasia -Dietitian assessment: Severe protein-calorie malnutrition -Can tolerate clear liquids very slowly -Dietary following Plan: -Try ensure clear/enlive -6-7 bottles per day -May need surgical intervention for feeding tube (3) Hypokalemia Current Visit: Yes Status: Acute Assessment and Plan: Hypokalemia -secondary to reduced PO intake Plan: -Replace as needed -Follow up BMP DVT Prophylaxis: SQ Heparin - Summary of Assessment and Plan Summary of Assessment and Plan: 57 yo male with no significant PMH. Presenting with dysphagia. E sphogeal/proximal stomach mass noted on CT. EDG performed, awaiting path results. - Time Spent with Patient Total time spent is greater than 50% in coordination of care (as documented) at patient's floor/unit and/or counseling patient: Internal Medicine: Result - Labs CBC & Chem 7: 08/30/18 00:56 08/31/18 01:35 Labs: BMP 08/31/18 01:35 Sodium 140 Potassium 3.8 Chloride 107 Carbon Dioxide 24 BUN 26 H Creatinine 1.00 Glucose 71 Calcium 8.3 L - ABG Interpretation ABG results: PT/INR, D-dimer PT 14.4 Seconds (9.4-12.1) H 08/29/18 01:13 - Impressions Impressions Barium Swallow X-Ray 08/30/18 07:00 IMPRESSION: 1. No obvious mucosal abnormality is identified on single contrast evaluation. 2. Significant narrowing at the GE junction. No contrast passed from the esophagus into the stomach after 7 minutes. The exam was then terminated. 3. Barium pill was not assessed due to inability of liquids to pass beyond the GE junction. D/ / 08/30/2018 10:26:10 [place] Nava MD / yolanda Interpreting Provider: [place] Nava MD Consult Discharge Plan - Plan Referrals: Blade Schilling MD [Non-Partnered Physician] - 09/03/18 NONE,PCP [Primary Care Provider] - Prescriptions: Lactose-Reduced Food [Ensure Clear] 296 ml PO 7XD #48 liquid Lactose-Reduced Food [Ensure Clear] 296 ml PO 7XD #48 liquid Lactose-Reduced Food [Ensure Enlive] 237 ml PO 7XD #48 liquid <EllierachealmonikaKassiedeyvi Daugherty - Last Filed: 08/31/18 14:56> Hospitalist Progress Note - Encounter Date of Encounter: 08/31/18 - Exam Vitals: Temp Pulse Resp BP Pulse Ox 97.8 F 88 19 114/80 99 08/31/18 11:06 08/31/18 11:06 08/31/18 11:06 08/31/18 11:06 08/31/18 11:06 - Time Spent with Patient Total time spent is greater than 50% in coordination of care (as documented) at patient's floor/unit and/or counseling patient: Internal Medicine: Result - Labs CBC & Chem 7: 08/30/18 00:56 08/31/18 01:35 Labs: BMP 08/31/18 01:35 Sodium 140 Potassium 3.8 Chloride 107 Carbon Dioxide 24 BUN 26 H Creatinine 1.00 Glucose 71 Calcium 8.3 L - ABG Interpretation ABG results: PT/INR, D-dimer PT 14.4 Seconds (9.4-12.1) H 08/29/18 01:13 - Attending Attestation I have seen and independently assessed this patient and I agree with plan as documented Exam Gen. NAD CVS. S1 S2 WNL Resp. CTAB GI. Soft, NT, ND +BS Ext 2+ pulses Plan Esophageal mass. S/p endoscopy today showing malignant appearing stenosis. Barium swallow performed today showed significant stenosis. Discussed with GI and dietary, patient tolerated clear liquids and will be discharged on ensure. Victor M; follow up on monday with Dr Addison who will arrange his PEG tube with surgery and hematology/oncology follow up
--- NOTE | 2018-08-31 13:57 | Discharge Summary ---
<Harley Christina L - Last Filed: 08/31/18 14:49> - NOTES TO OUTPATIENT PROVIDER Notes to Outpatient Provider: Follow-up on , 09/03/18 with GI. Path report from EGD pending. Pt should follow zoology professor instrcutions for diet. Date of Encounter: 08/31/18 Time of Encounter: 13:53 - Discharge Diagnosis (1) Mass of gastroesophageal junction Priority: Primary Status: Acute (2) Protein calorie malnutrition Priority: Secondary Status: Acute Qualifiers: Protein-calorie malnutrition severity: mild Qualified Code(s): E44.1 - Mild protein-calorie malnutrition (3) Hypokalemia Priority: Secondary Status: Resolved Hospital course: Mr. Gonzales is a 57 year old male with no past medical history that presented with progressive dysphagia and unintentional weight loss. Dysphagia began around 6 months ago when he noticed he was regurgitating meals after eating. This began with solid food and progressively worsened to include liquids. Before admission he was only able to tolerate clear liquids. He says he has lost about 100 pounds over this time as well. Evaluation in the emergency room including a CT scan of the chest revealed a tumor at the gastroesophageal junction and proximal stomach with metastatic upper abdominal adenopathy. Gastroenterology was consulted. An endoscopy was performed, found severe intrinsic stenosis in the lower esophagus. Stenosis was not traversed. Results from Biopsies and cytology from this procedure were still pending at time of discharge. A barium swallow showed significant narrowing at the GE junction. No contrast passed her esophagus and stomach. Patient was able to tolerate some liquid diet which included milk and ensure. He was discharged with instructions to follow-up on Monday09/03/18 with gastroenterology. He was also discharged with prescriptions for ensure. Dx: Mass of gastroesophageal junction Pertinent tests/consults: Gastroenterology -EGD -Pathology report pending. Follow up: Gastroenterology 09/03/18 Tests pending: Pathology from EGD. Med changes: None Mental status: awake, fully oriented - Time Spent with Patient Total time spent providing and/or coordinating discharge services: - Discharge Medications Prescriptions: New Lactose-Reduced Food [Ensure Enlive] 237 ml PO 7XD #48 liquid Lactose-Reduced Food [Ensure Clear] 296 ml PO 7XD #48 liquid Lactose-Reduced Food [Ensure Clear] 296 ml PO 7XD #48 liquid Home Medications: Lactose-Reduced Food [Ensure Clear] 296 ml PO 7XD #48 liquid 08/31/18 [Rx] Lactose-Reduced Food [Ensure Clear] 296 ml PO 7XD #48 liquid 08/31/18 [Rx] Lactose-Reduced Food [Ensure Enlive] 237 ml PO 7XD #48 liquid 08/31/18 [Rx] Allergies/Adverse Reactions: Allergy/AdvReac Type Severity Reaction Status Date / Time No Known Allergies Allergy Verified 08/28/18 22:57 Date of admission: 08/28/18 23:16 Primary care physician: PCP NONE Consults: 08/29/18 00:22 Consult to Nutrition [CONS] Routine Comment: Consulting Provider: NUTRITION Reason for Dietary Consult: MST Score 08/29/18 00:50 Consult to Gastroenterology [CONS] Routine Consulting Provider: Gastroenterology Susan Reason for Consult: 57 yo M w/ longstanding smoking history presents with 100lbs weight loss and dysphagia. Seen to have a mass concerning for distal esophageal malignancy Call Completed: No Discharging clinician: Harley Christina Anticipated date of discharge: 08/31/18 - Constitutional Vitals: Temp Pulse Resp BP Pulse Ox 97.8 F 88 19 114/80 99 08/31/18 11:06 08/31/18 11:06 08/31/18 11:06 08/31/18 11:06 08/31/18 11:06 Exam: Gen: Vitals noted. No acute distress. Sitting comfortably on edge of bed Eyes: anicteric sclerae, moist conjunctivae; no lid-lag; Pupils equal and reactive to light HENT: Atraumatic, normocephalic; oropharynx clear with moist mucous membranes and no mucosal ulcerations Neck: Trachea midline; supple, no thyromegaly or lymphadenopathy Cardiac: RRR, no murmurs, rubs or gallops, S1/S2 Pulmonary: CTA bilaterally, no wheezes, rales or rhonchi, equal chest expansion Abdomen: soft, concave, non-tender, no rigidity or guarding. No masses or hepatosplenomegaly MSK: ROM intact, no joint swelling noted Extremities: no BLE edema, Some patches of darkened skin on lower extremities. Pt says his legs have always been this way Skin: Normal temperature, turgor and texture; no rash, ulcers or subcutaneous nodules Neuro: moves all extremities, no focal deficits. Psych: Appropriate mood and behavior. A&Ox3 - Patient Status Disposition: Home, Self-Care Condition: Fair - Discharge Instructions Follow Up With: NONE,PCP [Primary Care Provider] - Blade Schilling MD [Non-Partnered Physician] - 09/03/18 <Rufino Bundy - Last Filed: 08/31/18 15:11> Orders not resulted at time of discharge: Pending orders 08/31/18 10:32 Phosphorous Stat Date of Encounter: 08/31/18 Hospital course: Mr. Gonzales is a 57 year old male - Time Spent with Patient Total time spent providing and/or coordinating discharge services: Date of admission: 08/28/18 23:16 Primary care physician: PCP NONE Consults: 08/29/18 00:22 Consult to Nutrition [CONS] Routine Comment: Consulting Provider: NUTRITION Reason for Dietary Consult: MST Score 08/29/18 00:50 Consult to Gastroenterology [CONS] Routine Consulting Provider: Gastroenterology Susan Reason for Consult: 57 yo M w/ longstanding smoking history presents with 100lbs weight loss and dysphagia. Seen to have a mass concerning for distal esophageal malignancy Call Completed: No - Constitutional Vitals: Temp Pulse Resp BP Pulse Ox 97.8 F 88 19 114/80 99 08/31/18 11:06 08/31/18 11:06 08/31/18 11:06 08/31/18 11:06 08/31/18 11:06 - Attending Attestation I have seen and independently assessed this patient and I agree with plan as documented Exam Gen. NAD CVS. S1 S2 WNL Resp. CTAB GI. Soft, NT, ND +BS Ext 2+ pulses Plan Esophageal mass. S/p endoscopy today showing malignant appearing stenosis. Barium swallow performed today showed significant stenosis. Discussed with GI and dietary, patient tolerated clear liquids and will be discharged on . Will follow up on monday with Dr Addison who will arrange his PEG tube with surgery and hematology/oncology follow up
[2018-08-31 16:45] VITALS: BP 98/64
== END 2018-08-31 16:51 | disposition home or self-care (01) ==
LOC: 3NENU 18:35 → EMEROOARM 18:35 → 3NENU 23:43
PROVIDERS: ADMIT Internal Medicine; ATTEND Internal Medicine
PROC: ENDOEBX (2018-08-29 14:30)

== ENCOUNTER 2018-09-13 15:49 | Inpatient (IN) ==
--- NOTE | 2018-09-13 14:53 | Anesthesia Evaluation PreOp ---
Date of Encounter: 09/13/18 Time of Encounter: 14:51 - Past History Planned Operation: Laparotomy, Feeding tube, Lymph Node Bx Cardiac History: Denies any Significant Hx Pulmonary History: Former smoker (quit 2017) TECHNOLOGY STRATEGIST History: Denies Any Significant HX Other Medical History: Denies Any Significant HX, Other (Esophageal dysphagia & weight loss. Suspected Esophageal adenoCa.) Anesthesia History: Past Anesthesia (NO prior GA), MH (NO FAmHx of MH) Alcohol Use: none Drug use: none Medications and Allergies Lactose-Reduced Food [Ensure Clear] 296 ml PO 3-4XD 09/13/18 [History] Allergy/AdvReac Type Severity Reaction Status Date / Time No Known Allergies Allergy Verified 08/28/18 22:57 - Meds/Allergy Pre-op Review Medications Reviewed: Yes Allergies Reviewed: Yes Beta Blockers on Current Med List: No Anesthesia Results - Labs Laboratory Tests 08/29/18 09/03/18 09/11/18 18:51 11:54 15:46 WBC Hgb Hct Plt Count Sodium 139 Potassium 3.5 Chloride 101 Carbon Dioxide 31 H BUN 23 H Creatinine 0.82 Est GFR (Non-Af Amer) > 60 Glucose 84 Phosphorus 3.1 Magnesium 2.6 Total Bilirubin 0.9 Carcinoembryonic Ag 52.6 H 09/11/18 15:46 WBC 8.8 Hgb 13.1 Hct 39.2 Plt Count 202 Sodium Potassium Chloride Carbon Dioxide BUN Creatinine Est GFR (Non-Af Amer) Glucose Phosphorus Magnesium Total Bilirubin Carcinoembryonic Ag - Imaging EKG: report reviewed (53bpm - SINUS BRADYCARDIA WITH SINUS ARRHYTHMIA RIGHT BUNDLE BRANCH BLOCK Electronically Signed On 09-13-2018 14:50:09 EDT by Demarcus Hinds) Additional studies: PE/PET CT skull to thigh DX/initi IMPRESSION: 1. Metabolically active mass at the esophagogastric junction likely represents esophageal cancer. 2. Metabolically active epigastric lymphadenopathy consistent with metastatic disease with probable lymph node metastases along the gastrohepatic ligament, paraesophageal region, and within the mediastinum. 3. Intense focal FDG activity along the left lateral rectal wall could represent colorectal cancer. Recommend direct visualization with colonoscopy. 4. No metabolic activity associated with bilateral pulmonary nodules, below the reliable PET imaging threshold. Short interval follow-up CT scan of the chest in 2-3 months is recommended. D/ / Elijah Balbuena MD / Elijah Balbuena MD Anesthesia Exam O2 Sat Height 1.78 m Height 1.78 m Weight 74.389 kg Weight 74.389 kg O2 Sat by Pulse Oximetry 97 Vital Signs Temp Pulse Resp BP Pulse Ox 98.2 F 65 16 108/70 97 09/13/18 16:20 09/13/18 16:20 09/13/18 16:20 09/13/18 16:20 09/13/18 16:20 Height: 5'10" Weight: 165# BMI = 24 NPO (# of Hours): MNOC - HEENT Pupil (Motor): Pupils equal, EOMI Mallampati: II Teeth: Missing, Poor dentition (Solitary front tooth is slightly wiggly) Oral Opening: Greater than 3 - TECHNOLOGY STRATEGIST TECHNOLOGY STRATEGIST Motor: Normal RUE, Normal LUE, Normal RLE, Normal LLE, Normal Face TECHNOLOGY STRATEGIST Sensory: Normal: RUE, LUE, RLE, LLE, Face - Cardiac Rhythm: Regular Murmur: None - Pulmonary Breath Sounds: bilateral Clear Respiratory Effort: Symmetrical Anesthesia Assess/Plan ASA Score: 3 (Esophageal Ca) Level of consciousness: Cooperative, Oriented, Tranquil Anesthetic Plan: General Recovery Plan: PACU Anes Supervising Prov Stmt: Pt seen/evaluated, R&B discussed, questions answered and consent obtained.
[~2018-09-13 15:49] MED LIST: *HR* HYDROmorphone (PF) 1 MG/ML SYRINGE IVP PRN; *HR* Labetalol 20 MG/4 ML SYRINGE IVP PRN; *HR* Promethazine 25 MG/ML VIAL IVP PRN; Acetaminophen IV 1,000 MG/100 ML INFUS..BTL IVPB ONE; Famotidine 20 MG/2 ML VIAL IVP ONE; Pregabalin 75 MG CAPSULE PO ONE
[2018-09-13] MEDS ORDERED: CeFAZolin Syr 2,000MG/20 ML 2,000 MG/20 ML SYRINGE IVPB ONE (16:18)
--- NOTE | 2018-09-13 16:29 | History & Physical Report ---
Date of Encounter: 09/13/18 Time of Encounter: 16:29 24 Hour HP Update - Instructions Instructions: If the History and Physical is less than 30 days old and was completed prior to A.M. admission and or procedure and has NOT been updated on calendar day of procedure please complete this update prior to performing procedure. - Update Patient reports changes in Medical Condition: No Changes in examination, assessment, or condition: No Changes in Medication: No Preop tests/diagnostics Reviewed: Yes Pre-Op MRSA Screen: Negative Surgery Remains Indicated: Yes Consent for Planned Operative Procedure(s) Verified: Yes - Pre-Operative Checklist Preoperative Checklist Indicated: Yes Prophylactic Antibiotic Ordered: Yes Home Medications Include Beta Sarah: No Beta Sarah Taken Today (Day of Surgery): No Beta Sarah Taken Yesterday (Day Prior to Surgery): No Is VTE Prophylaxis Indicated?: Yes
[2018-09-13] MEDS ORDERED: Ringers Solution, Lactated 1,000 ML IVC SCH (16:30)
[2018-09-13] MEDS ORDERED: *HR* FentaNYL (PF) 100 MCG/2 ML VIAL ONE (17:07)
[2018-09-13] MEDS ORDERED: *HR* Midazolam HCl 2 MG/2 ML VIAL ONE (17:08)
[2018-09-13] MEDS ORDERED: *HR* Propofol 200 MG/20 ML VIAL IVP ONE (17:08)
[2018-09-13] MEDS ORDERED: *HR* Rocuronium Bromide 50 MG/5 ML VIAL ONE (17:10)
[2018-09-13] MEDS ORDERED: *HR* PHENYLEPHRINE 1,000 MCG/10 ML SYRINGE IVP ONE (17:12)
[2018-09-13] MEDS ORDERED: cefOXitin 1,000 MG, Sodium Chloride IRRigation 1,000 ML IR ONE (17:30)
[2018-09-13] MEDS ORDERED: Ondansetron 4 MG/2 ML VIAL ONE (17:56)
[2018-09-13] MEDS ORDERED: Dexamethasone 4 MG/ML VIAL ONE (17:56)
[2018-09-13] MEDS ORDERED: Neostigmine Methylsulfate 3 MG/3 ML SYRINGE ONE (18:18)
[2018-09-13] MEDS ORDERED: *HR* HYDROMORPHONE 2 MG/ML VIAL ONE (18:36)
--- NOTE | 2018-09-13 18:52 | Operative Note ---
Date of procedure: 09/13/18 Pre-op diagnosis: esophageal cancer Post-op diagnosis: other (esophageal cancer, sclerosis on live) Procedure: laparatomy, biopsy of lymph node, wedge resection of live, feeding jejunostomy Anesthesia: ARTURO Surgeon: Waldemar Jean Was there an clinical nursing assistant present: No Estimated blood loss (cc): 50 Specimen: wedge of the right left lobe of the liver, biopsy of celiac node Condition: stable Disposition: PACU Procedure in Detail: The patient was brought to the operating room and placed on the operating table in the supine position. After undergoing general anesthesia with sequential compressive devices on bilateral lower extremities and perioperative antibiotics on board, the patient was shaved of body hair is it was not performed in the preoperative area per protocol. He was draped prepped and draped in the usual sterile fashion. A midline incision was made from the xiphoid process to the umbilicus with a 10 scalpel blade through the skin down of the subcutaneous tissue with the Bovie used to control hemostasis and continue dissection through the peritoneal lining. A self-retaining retractor was assembled. The jyoti mass appreciated on the left lobe of the liver and a wedge resection of this area was performed with intraoperative frozen section demonstrating sclerosis and no evidence of metastatic cancer. The lesser sac was opened and the celiac node identified biopsy with intraoperative frozen section confirming metastatic carcinoma as 2 previous endoscopies by gastrointestinal medicine were nondiagnostic. Hemostasis was excellent. A 18-Bahraini red rubber catheter was brought through the lateral left abdominal wall and placed into the small bowel 30 cm from the jejunum. 2 pursestring sutures of #2 silk suture were used to secure the tube in place. The jejunum was then tacked to the anterior abdominal wall circumferentially around the 2 and then distally and proximally to prevent torsion. Hemostasis was excellent. Midline was closed with a #1 double- stranded PDS the deep dermis closed with a running 3-0 Vicryl, and the skin closed with a 4-0 Monocryl subcuticular stitch with dressings consisting of Steri-Strips and sterile gauze. Patient was extubated taken to the recovery room hemodynamically stable
[2018-09-13] MEDS ORDERED: *HR* HYDROcodone/Acet 5/325 mg TABLET PO PRN (20:05)
[2018-09-13] MEDS ORDERED: Morphine Sulfate 2 MG/ML SYRINGE IVP PRN (20:05)
[2018-09-13] MEDS ORDERED: Naloxone 0.4 MG/ML INJ IVP PRN (20:05)
[2018-09-13] MEDS ORDERED: Ondansetron 4 MG/2 ML VIAL IVP PRN (20:05)
[2018-09-13] MEDS: Ipratropium/Albuterol Neb 3 ML IH SCH (21:20)
--- NOTE | 2018-09-13 21:51 | Anesthesia Evaluation Post Op ---
Date of Encounter: 09/13/18 Time of Encounter: 07:40 - Vital Signs Vital Signs: Vital Signs/O2 Sat, Most Current Temp Pulse Resp BP Pulse Ox 97.6 F 59 16 133/83 95 09/13/18 20:28 09/13/18 20:28 09/13/18 20:28 09/13/18 20:28 09/13/18 20:28 - Lungs Lungs: Clear Ascult./Percussion - Cardiovascular Regular Rate - Mental Status Mental Status: Alert & Oriented, Answers Appropriately - Pain Pain Scale: 0 Pain Scale used: Numeric (1 - 10) - Nausea Vomiting Nausea Vomiting: Not Present - Hydration Hydration: NPO, Has not voided - Discharge PostOp Status: Transfer Patient to floor
[2018-09-13] MEDS: *HR* Heparin 5,000 UNIT/ML VIAL SQ SCH (23:03)
[2018-09-13] MEDS: Famotidine 20 MG TABLET PO SCH (23:04)
[2018-09-13] MEDS: Gabapentin 300 MG CAPSULE PO SCH (23:04)
[2018-09-13] MEDS: 0.9 % Sodium Chloride 1,000 ML IVC SCH (23:04)
[2018-09-14] MEDS: Ketorolac 15 MG/ML VIAL IVP SCH ×5 (00:13→23:50)
[2018-09-14] MEDS: Ipratropium/Albuterol Neb 3 ML IH SCH ×7 (00:25→23:07)
[2018-09-14] MEDS: *HR* Heparin 5,000 UNIT/ML VIAL SQ SCH ×3 (05:19→21:39)
[2018-09-14 06:15] LABS: Hematocrit 40.1 % (37.5-50.1); Hemoglobin 13.2 g/dL (12.9-16.9); Mean Corpuscular HGB Conc 32.9 g/dL (31.6-35.5); Mean Corpuscular Hemoglobin 29.5 pg (28.0-33.3); Mean Corpuscular Volume 89.7 fL (83.0-100.0); Mean Platelet Volume 9.8 fL (9.4-12.4); Platelet Count 238 K/mcL (140-400); Red Blood Count 4.47 M/mcL (4.19-5.50); Red Cell Distribution Width 13.8 % (11.5-14.5); White Blood Count 9.9 K/mcL (4.3-11.1)
[2018-09-14 06:35] LABS: % Iron Saturation 16 % (20-55); BUN/Creatinine Ratio 31 (6-26); Blood Urea Nitrogen 30 mg/dL (6-20); Calcium 8.3 mg/dL (8.6-10.3); Carbon Dioxide 26 mEq/L (23-29); Chloride 105 mEq/L (98-107); Glucose 102 mg/dL (70-105); Iron 32 mcg/dL (65-175); Osmolality,Calculated 292 (280-300); Potassium 4.2 mEq/L (3.5-5.1); Sodium 138 mEq/L (136-145); Transferrin 146 mg/dL (203-362); eGFR For African Americans > 60 (> 60); eGFR For Non-African Americans > 60 (> 60)
[2018-09-14] MEDS ORDERED: Iron Sucrose Complex 400 MG in 0.9 % Sodium Chloride 250 ML IVPB ONE (09:01)
[2018-09-14] MEDS: Gabapentin 300 MG CAPSULE PO SCH ×3 (09:04→21:39)
[2018-09-14] MEDS: Famotidine 20 MG TABLET PO SCH ×2 (09:04→21:39)
[2018-09-14] MEDS: 0.9 % Sodium Chloride 1,000 ML IVC SCH (09:04)
--- NOTE | 2018-09-14 09:10 | Cardiothoracic Progress Note ---
Date of Encounter: 09/14/18 Time of Encounter: 09:08 - Assessment and plan (1) Esophageal cancer, stage IIIA Current Visit: Yes Status: Acute The assessment and plan as outlined above was discussed with the patient and/or family members who expressed understanding and agreement. All questions were answered. consult to bible worker (2) Iron deficiency anemia due to dietary causes Current Visit: No Status: Chronic The assessment and plan as outlined above was discussed with the patient and/or family members who expressed understanding and agreement. All questions were a nswered. replace with iv iron (3) Protein calorie malnutrition Current Visit: No Status: Acute The assessment and plan as outlined above was discussed with the patient and/or family members who expressed understanding and agreement. All questions were answered. start liquid diet. start tube feedings without titration until tomorrow. rounded with nurse. discussed placing a waifer to help secure j tube. Qualifiers: Vital Signs, Last 4 Hours Temp Pulse Resp BP Pulse Ox 09/14/18 07:46 18 91 09/14/18 06:36 98.1 F 62 16 103/67 96 Oxgyen Flow Rate Oxygen Flow Rate (LPM) 1 Clinical Data, last 8 Hours Output, Urine Amount 250 Output, Urine Amount 0 Weight 09/12/18 09/13/18 09/14/18 23:59 23:59 23:59 Weight 74.389 kg 75.1 kg - Physical Examination General: Conversant, No Apparent Distress HEENT: Atraumatic, Normocephaly Cardiac: Reg Rate and Rhythm, Normal S1 and S2 Incision: No signs of infection, Dry/intact dressing Lungs: Normal Breath Sounds Neuro: Alert and responsive, No focal deficits noted, Cranial nerves intact, Motor nerves intact - Labs 09/14/18 05:56 09/14/18 05:56 Lab Results, Last 24 hours 09/14/18 09/14/18 05:56 05:56 WBC 9.9 Hgb 13.2 Hct 40.1 Plt Count 238 Sodium 138 Potassium 4.2 Chloride 105 Carbon Dioxide 26 BUN 30 H Creatinine 0.97 Glucose 102 Calcium 8.3 L Magnesium 2.0 - VTE Documentation of Mechanical Device: Intermittent pneumatic compression device Consult Discharge Plan - Plan Referrals: NONE,PCP [Primary Care Provider] -
[2018-09-15] MEDS: Ipratropium/Albuterol Neb 3 ML IH SCH ×5 (03:55→20:18)
[2018-09-15] MEDS: *HR* Heparin 5,000 UNIT/ML VIAL SQ SCH ×3 (05:21→22:32)
[2018-09-15] MEDS: Ketorolac 15 MG/ML VIAL IVP SCH ×3 (05:21→18:22)
[2018-09-15] MEDS: Famotidine 20 MG TABLET PO SCH ×2 (08:54→22:32)
[2018-09-15] MEDS: Gabapentin 300 MG CAPSULE PO SCH ×3 (08:54→22:32)
--- NOTE | 2018-09-15 12:51 | Cardiothoracic Progress Note ---
Date of Encounter: 09/15/18 Time of Encounter: 12:50 - Assessment and plan (1) Esophageal cancer, stage IIIA Current Visit: Yes Status: Acute The assessment and plan as outlined above was discussed with the patient and/or family members who expressed understanding and agreement. All questions were answered. consult to wide area network administrator will increase tf to 25 tomorrow if bs more active (2) Iron deficiency anemia due to dietary causes Current Visit: No Status: Chronic The assessment and plan as outlined above was discussed with the patient and/or family members who expressed understanding and agreement. All questions were answered. replace with iv iron (3) Protein calorie malnutrition Current Visit: No Status: Acute The assessment and plan as outlined above was discussed with the patient and/or family members who expressed understanding and agreement. All questions were answered. start liquid diet. start tube feedings without titration until tomorrow. rounded with nurse. discussed placing a waifer to help secure j tube. Qualifiers: Vital Signs, Last 4 Hours Resp Pulse Ox 09/15/18 11:44 14 96 Oxgyen Flow Rate Oxygen Flow Rate (LPM) 92 Clinical Data, last 8 Hours Output, Urine Amount 100 Weight 09/13/18 09/14/18 09/15/18 23:59 23:59 23:59 Weight 74.389 kg 75.1 kg - Physical Examination General: Conversant, No Apparent Distress Cardiac: Reg Rate and Rhythm, Normal S1 and S2 Incision: No signs of infection, Dry/intact dressing Lungs: Normal Breath Sounds Neuro: Alert and responsive, No focal deficits noted, Cranial nerves intact Abdomen: Soft, Other (bs hypoactive ) - Labs 09/14/18 05:56 09/14/18 05:56 - VTE Documentation of Mechanical Device: Intermittent pneumatic compression device Consult Discharge Plan - Plan Referrals: NONE,PCP [Primary Care Provider] -
[2018-09-16] MEDS: Ipratropium/Albuterol Neb 3 ML IH SCH ×7 (00:18→23:46)
[2018-09-16] MEDS: Ketorolac 15 MG/ML VIAL IVP SCH ×3 (01:56→12:09)
[2018-09-16] MEDS: *HR* Heparin 5,000 UNIT/ML VIAL SQ SCH ×3 (06:48→20:29)
[2018-09-16 09:20] LABS: Alanine Aminotransferase 16 Units/L (7-52); Albumin 2.8 g/dL (3.5-5.7); Alkaline Phosphatase 98 Units/L (34-104); Aspartate Amino Transferase 20 Units/L (13-39); BUN/Creatinine Ratio 30 (6-26); Bilirubin,Total 0.9 mg/dL (0.3-1.0); Blood Urea Nitrogen 24 mg/dL (6-20); Calcium 8.1 mg/dL (8.6-10.3); Carbon Dioxide 29 mEq/L (23-29); Chloride 103 mEq/L (98-107); Globulin 2.7 g/dL (2.4-3.5); Glucose 104 mg/dL (70-105); Osmolality,Calculated 294 (280-300); Potassium 3.7 mEq/L (3.5-5.1); Sodium 140 mEq/L (136-145); Total Protein 5.5 g/dL (6.4-8.9); eGFR For African Americans > 60 (> 60); eGFR For Non-African Americans > 60 (> 60)
[2018-09-16] MEDS: Gabapentin 300 MG CAPSULE PO SCH ×3 (10:31→20:29)
[2018-09-16] MEDS: Famotidine 20 MG TABLET PO SCH ×2 (10:31→20:30)
--- NOTE | 2018-09-16 12:59 | Cardiothoracic Progress Note ---
Date of Encounter: 09/16/18 Time of Encounter: 12:59 - Assessment and plan (1) Esophageal cancer, stage IIIA Status: Acute The assessment and plan as outlined above was discussed with the patient and/or family members who expressed understanding and agreement. All questions were an swered. Mr. Jasso is doing well from a neurologic standpoint. No issues. He is comfortable. From a neuro standpoint he is still on scheduled roradol as well as gabapentin and has morphine available From a cardiovascular standpoint he seems anatomically stable. From a respiratory standpoint he is stable no issues he is on room air saturations are 92%. From a GI standpoint his abdomen is soft and nontender but he subjectively feels slightly full. We did increase the tube feeds at 30 mL per hour. Its hard to tll the accuracy of the I/Os. Although he is written for full liquids it is difficult to tell exactly how much he is taken in. Regardless the chunks in the soup he has difficulty swallowing. We have prescribed high-calorie ensure which he likes and has at home. This is important as his albumin is 2.8 and total protein is 5.5 and has lost 100 pounds. To achieve a bowel movements we will give him milk of magnesia 30 mL Advanced to fulls but without chunks. From an electrolyte standpoint his K is 3.7 and we will give him KCL 20 mL milliequivalents, recheck potassium in the a.m. Dispo home when up to goal TFs. (2) Protein calorie malnutrition Status: Acute The assessment and plan as outlined above was discussed with the patient and/or family members who expressed understanding and agreement. All questions were answered. Qualifiers: (3) Iron deficiency anemia due to dietary causes Status: Chronic The assessment and plan as outlined above was discussed with the patient and/or family members who expressed understanding and agreement. All questions were answered. - Subjective Interval history: Mr. Gonzales has minimal complaints other than a slight sense of abdominal fullness. He does not desire to eat the soup as it is chunky and is worried about passing of large objects down his esophagus. Vital Signs, Last 4 Hours Temp Pulse Resp BP 09/16/18 11:50 97.9 F 74 20 114/72 Oxgyen Flow Rate Oxygen Flow Rate (LPM) 2 Weight 09/14/18 09/15/18 09/16/18 23:59 23:59 23:59 Weight 75.1 kg 76 kg - Physical Examination General: Conversant, No Apparent Distress HEENT: Atraumatic, Normocephaly, Trachea midline Neck: No JVD Cardiac: Reg Rate and Rhythm, Normal S1 and S2, No Murmur Incision: No signs of infection, Dry/intact dressing Chest tubes: Other Pacing Wires: Other Lungs: Normal Breath Sounds Neuro: Alert and responsive, No focal deficits noted Vascular: Normal capillary refill Abdomen: Soft Skin: No rashes noted on visualized skin Musculoskeletal: No Chest Wall Tenderness Extremities: No Clubbing, No Cyanosis, No Edema (On exam Mr. Lamonte nunez is in no exposed acute distress his vital signs are stable he has regular rate and rhythm without murmurs rubs gallops or bruits his breath sounds are equal bilaterally his abdomen is soft and non-tender although subjectively he feels full dressings around the feeding jejunostomy are intact and dry. His extremities are warm and well perfused.) - Labs 09/14/18 05:56 09/16/18 08:44 Lab Results, Last 24 hours 09/16/18 08:44 Sodium 140 Potassium 3.7 Chloride 103 Carbon Dioxide 29 BUN 24 H Creatinine 0.80 Glucose 104 Calcium 8.1 L Total Bilirubin 0.9 AST 20 ALT 16 Alkaline Phosphatase 98 - VTE Documentation of Mechanical Device: Intermittent pneumatic compression device Consult Discharge Plan - Plan Referrals: NONE,PCP [Primary Care Provider] -
[2018-09-16] MEDS ORDERED: Potassium Chloride Elixir 20 MEQ/15 ML UDC PO ONE (13:21)
[2018-09-16] MEDS ORDERED: Ketorolac 15 MG/ML VIAL IVP PRN (13:22)
[2018-09-16] MEDS: MOM Conc 10 ML UD.LIQ PO PRN (15:49)
[2018-09-17] MEDS: Ipratropium/Albuterol Neb 3 ML IH SCH ×5 (04:29→20:16)
[2018-09-17] MEDS: *HR* Heparin 5,000 UNIT/ML VIAL SQ SCH ×2 (05:23→14:11)
[2018-09-17 05:38] LABS: BUN/Creatinine Ratio 30 (6-26); Blood Urea Nitrogen 25 mg/dL (6-20); Carbon Dioxide 30 mEq/L (23-29); Chloride 104 mEq/L (98-107); Glucose 92 mg/dL (70-105); Osmolality,Calculated 290 (280-300); Potassium 3.9 mEq/L (3.5-5.1); Sodium 138 mEq/L (136-145); eGFR For African Americans > 60 (> 60); eGFR For Non-African Americans > 60 (> 60)
[2018-09-17] MEDS: Gabapentin 300 MG CAPSULE PO SCH ×2 (09:56→14:11)
[2018-09-17] MEDS: Famotidine 20 MG TABLET PO SCH (09:56)
[2018-09-17] MEDS: MOM Conc 10 ML UD.LIQ PO PRN (10:59)
--- NOTE | 2018-09-17 13:02 | Cardiothoracic Progress Note ---
Date of Encounter: 09/17/18 Time of Encounter: 13:01 - Assessment and plan (1) Esophageal cancer, stage IIIA Current Visit: No Status: Acute The assessment and plan as outlined above was discussed with the patient and/or family members who expressed understanding and agreement. All questions were answered. consult to rn oncology will increase tf to 30 start reglan (2) Iron deficiency anemia due to dietary causes Current Visit: No Status: Chronic The assessment and plan as outlined above was discussed with the patient and/or family members who expressed understanding and agreement. All questions were answered. replace with iv iron (3) Protein calorie malnutrition Current Visit: No Status: Acute The assessment and plan as outlined above was discussed with the patient and/or family members who expressed understanding and agreement. All questions were answered. may bring in soda and frosties. Qualifiers: Oxgyen Flow Rate Oxygen Flow Rate (LPM) 1 Clinical Data, last 8 Hours Output, Urine Amount 0 Weight 09/15/18 09/16/18 09/17/18 23:59 23:59 23:59 Weight 76 kg 76.4 kg - Physical Examination General: Conversant, No Apparent Distress HEENT: Atraumatic Cardiac: Reg Rate and Rhythm, Normal S1 and S2 Incision: No signs of infection Neuro: Alert and responsive, No focal deficits noted Abdomen: Soft, Other (hypoactive bs ) - Labs 09/14/18 05:56 09/17/18 04:27 Lab Results, Last 24 hours 09/17/18 04:27 Sodium 138 Potassium 3.9 Chloride 104 Carbon Dioxide 30 H BUN 25 H Creatinine 0.84 Glucose 92 Calcium 8.0 L - VTE Documentation of Mechanical Device: Intermittent pneumatic compression device Consult Discharge Plan - Plan Referrals: NONE,PCP [Primary Care Provider] -
[2018-09-17] MEDS ORDERED: MOM Conc 10 ML UD.LIQ PO ONE (14:15)
[2018-09-17] MEDS: Metoclopramide 10 MG/2 ML VIAL IVP SCH (17:54)
[2018-09-18] MEDS: Ipratropium/Albuterol Neb 3 ML IH SCH ×6 (00:03→20:21)
[2018-09-18] MEDS: Famotidine 20 MG TABLET PO SCH ×3 (00:22→20:34)
[2018-09-18] MEDS: *HR* Heparin 5,000 UNIT/ML VIAL SQ SCH ×4 (00:22→20:35)
[2018-09-18] MEDS: Metoclopramide 10 MG/2 ML VIAL IVP SCH ×2 (00:22→06:40)
[2018-09-18] MEDS: Gabapentin 300 MG CAPSULE PO SCH ×4 (00:22→20:35)
--- NOTE | 2018-09-18 08:25 | Cardiothoracic Progress Note ---
Date of Encounter: 09/18/18 Time of Encounter: 08:24 - Assessment and plan (1) Esophageal cancer, stage IIIA Current Visit: No Status: Acute The assessment and plan as outlined above was discussed with the patient and/or family members who expressed understanding and agreement. All questions were answered. consult to diversified crops i farmworker will increase tf to 50 stop reglan (2) Iron deficiency anemia due to dietary causes Current Visit: No Status: Chronic The assessment and plan as outlined above was discussed with the patient and/or family members who expressed understanding and agreement. All questions were answered. completed therapy (3) Protein calorie malnutrition Current Visit: No Status: Acute The assessment and plan as outlined above was discussed with the patient and/or family members who expressed understanding and agreement. All questions were answered. may bring in soda and frosties. Qualifiers: Protein-calorie malnutrition severity: moderate Qualified Code(s): E44.0 - Moderate protein-calorie malnutrition - Subjective Interval history: feels better after reglan and 3 bm Vital Signs, Last 4 Hours Temp Pulse Resp BP Pulse Ox 09/18/18 07:52 97.2 F L 69 95/60 09/18/18 07:48 16 96 09/18/18 04:44 16 97 Oxgyen Flow Rate Oxygen Flow Rate (LPM) 2 Weight 09/16/18 09/17/18 09/18/18 23:59 23:59 23:59 Weight 76 kg 76.4 kg 77.6 kg - Physical Examination General: Conversant, No Apparent Distress HEENT: Atraumatic, Normocephaly Cardiac: Reg Rate and Rhythm, Normal S1 and S2 Incision: No signs of infection Lungs: Normal Breath Sounds Neuro: Alert and responsive, No focal deficits noted, Cranial nerves intact - Labs 09/14/18 05:56 09/17/18 04:27 - VTE Documentation of Mechanical Device: Intermittent pneumatic compression device Consult Discharge Plan - Plan Referrals: NONE,PCP [Primary Care Provider] -
[2018-09-19] MEDS: Ipratropium/Albuterol Neb 3 ML IH SCH ×6 (04:40→20:37)
[2018-09-19] MEDS: *HR* Heparin 5,000 UNIT/ML VIAL SQ SCH ×3 (06:30→20:59)
[2018-09-19] MEDS: Famotidine 20 MG TABLET PO SCH ×2 (09:32→20:59)
[2018-09-19] MEDS: Gabapentin 300 MG CAPSULE PO SCH ×2 (09:32→20:59)
--- NOTE | 2018-09-19 13:23 | Physician Discharge Referral ---
Home Health/Hosp Referral Info Transfer to: Home Health (none) Attending Provider: carmella Provider in Charge Post Discharge: PCP - Diagnosis (1) Esophageal cancer, stage IIIA Status: Acute (2) Iron deficiency anemia due to dietary causes Priority: Secondary Status: Chronic (3) Protein calorie malnutrition Priority: Secondary Status: Acute - Respiratory Orders Smoking Cessation: Smoking cessation has been advised. For more information, call the [place] Tobacco Quit Line at 7-345-LJMN-NOW. - Diet/Nutrition Diet/Nutrition Orders: Pureed Diet/Nutrition: List: jevity 1.5 ca. at 55cc per hour from 6pm until 9 am - Activity Activity Orders: Up ad dhruv - Services Needed Following services are medically necessary services: Nursing, Home Health Aide - Transfer Medications Home Medications: Lactose-Reduced Food [Ensure Clear] 296 ml PO 3-4XD 09/13/18 [History] Allergies/Adverse Reactions: Allergy/AdvReac Type Severity Reaction Status Date / Time No Known Allergies Allergy Verified 08/28/18 22:57 Certification: Further, I certify that my clinical findings support that this patient is homebound (i.e. absences from home require considerable and taxing effort and are for medical reasons or druze services or infrequently or short duration when for other reasons) because: Homebound Reason: Patient requires assistance of a person or device to safely leave home Attestation: My signature below is to certify that this patient is under my care and that I, or nurse practitioner, or a physician's pastoral assistant working with me, has a [id number] encounter with this patient.
--- NOTE | 2018-09-19 13:25 | Discharge Summary ---
Date of Encounter: 09/19/18 Time of Encounter: 13:23 - Discharge Diagnosis (1) Esophageal cancer, stage IIIA Priority: Primary Status: Acute (2) Iron deficiency anemia due to dietary causes Priority: Secondary Status: Chronic (3) Protein calorie malnutrition Priority: Secondary Status: Chronic Qualifiers: Protein-calorie malnutrition severity: moderate Qualified Code(s): E44.0 - Moderate protein-calorie malnutrition - Hospital Course Hospital course: Mr. Gonzales is a 58 year old male - Time Spent with Patient Total time spent providing and/or coordinating discharge services: - Discharge Medications Prescriptions: No Action Lactose-Reduced Food [Ensure Clear] 296 ml PO 3-4XD Home Medications: Lactose-Reduced Food [Ensure Clear] 296 ml PO 3-4XD 09/13/18 [History] Allergies/Adverse Reactions: Allergy/AdvReac Type Severity Reaction Status Date / Time No Known Allergies Allergy Verified 08/28/18 22:57 Date of admission: 09/13/18 16:16 Primary care physician: PCP NONE Consults: 09/14/18 09:07 Consult to Social Service(Oncology) [CONS] Routine Comment: Consulting Provider: Waldemar Jean Reason for Consult: enteral nutrition for home Call Completed: No Physical Examination Vital Signs, Last 4 Hours Temp Pulse Resp BP Pulse Ox 09/19/18 11:14 98.5 F 70 14 104/68 93 09/19/18 10:47 17 93 General: Conversant, No Apparent Distress HEENT: Atraumatic, Normocephaly Cardiac: Reg Rate and Rhythm, Normal S1 and S2 Lungs: Normal Breath Sounds Neuro: Alert and responsive, No focal deficits noted, Cranial nerves intact, Motor nerves intact Abdomen: Soft, Non-tender Extremities: No Edema - Patient Status Disposition: Home Health Service Condition: Fair Functional capacity at discharge: independent ambulation Overall status at discharge: patient is progressing back to baseline - Discharge Instructions Follow Up With: NONE,PCP [Primary Care Provider] - - Diet and Activity Activity: increase activity as tolerated Diet: other (pureed or liquids. jevity 1.5 lamar per j tube from 6pm until 9 am ) - VTE Documentation of Mechanical Device: Intermittent pneumatic compression device
[2018-09-20] MEDS: Ipratropium/Albuterol Neb 3 ML IH SCH ×5 (00:54→15:47)
[2018-09-20] MEDS: *HR* Heparin 5,000 UNIT/ML VIAL SQ SCH (06:36)
--- NOTE | 2018-09-20 08:55 | Cardiothoracic Progress Note ---
Date of Encounter: 09/20/18 Time of Encounter: 08:54 - Assessment and plan (1) Esophageal cancer, stage IIIA Current Visit: No Status: Acute The assessment and plan as outlined above was discussed with the patient and/or family members who expressed understanding and agreement. All questions were answered. awaiting discharge (2) Iron deficiency anemia due to dietary causes Current Visit: No Status: Chronic The assessment and plan as outlined above was discussed with the patient and/or family members who expressed understanding and agreement. All questions were answered. completed therapy (3) Protein calorie malnutrition Current Visit: No Status: Chronic The assessment and plan as outlined above was discussed with the patient and/or family members who expressed understanding and agreement. All questions were answered. may bring in soda and frosties. Qualifiers: Protein-calorie malnutrition severity: moderate Qualified Code(s): E44.0 - Moderate protein-calorie malnutrition - Subjective Interval history: per patient, going home today despite orders yesterday Vital Signs, Last 4 Hours Temp Pulse Resp BP Pulse Ox 09/20/18 07:38 97.4 F L 62 12 112/69 98 09/20/18 04:58 20 104/74 94 Oxgyen Flow Rate Oxygen Flow Rate (LPM) 3 Clinical Data, last 8 Hours Output, Urine Amount 0 Weight 09/18/18 09/19/18 09/20/18 23:59 23:59 23:59 Weight 77.6 kg 75.9 kg - Physical Examination General: Conversant, No Apparent Distress HEENT: Atraumatic, Normocephaly Cardiac: Reg Rate and Rhythm Incision: No signs of infection Lungs: Normal Breath Sounds Neuro: Alert and responsive, No focal deficits noted, Cranial nerves intact - Labs 09/14/18 05:56 09/17/18 04:27 - VTE Documentation of Mechanical Device: Intermittent pneumatic compression device Consult Discharge Plan - Plan Referrals: NONE,PCP [Primary Care Provider] -
[2018-09-20] MEDS: Famotidine 20 MG TABLET PO SCH (10:09)
[2018-09-20] MEDS: Gabapentin 300 MG CAPSULE PO SCH (10:10)
[2018-09-20 12:53] VITALS: BP 111/77
== END 2018-09-20 17:51 | disposition home health service (06) | DRG 229 ==
LOC: SAMDAY 15:49 → 2NENU 16:16
PROVIDERS: ADMIT Thoracic Surgery (Cardiothoracic Vascular Surgery); ATTEND Thoracic Surgery (Cardiothoracic Vascular Surgery)

== ENCOUNTER 2020-03-05 15:03 | Observation (INO) ==
[2020-03-05 15:47] LABS: Basophils # 0.1 K/mcL (0.0-0.2); Eosinophils # 0.2 K/mcL (0.0-0.6); Eosinophils % 2.9 %; Hematocrit 46.7 % (37.5-50.1); Hemoglobin 14.6 g/dL (12.9-16.9); Immature Granulocytes % 0.5 % (0-4); Lymphocytes # 1.2 K/mcL (0.6-4.6); Lymphocytes % 15.1 %; Mean Corpuscular HGB Conc 31.3 g/dL (31.6-35.5); Mean Corpuscular Hemoglobin 30.2 pg (28.0-33.3); Mean Corpuscular Volume 96.5 fL (83.0-100.0); Mean Platelet Volume 9.3 fL (9.4-12.4); Monocytes # 0.5 K/mcL (0.0-1.3); Monocytes % 5.9 %; Neutrophils # 5.7 K/mcL (1.6-8.9); Platelet Count 216 K/mcL (140-400); Red Blood Count 4.84 M/mcL (4.19-5.50); Red Cell Distribution Width 16.7 % (11.5-14.5); Segmented Neutrophils % 74.6 %; White Blood Count 7.6 K/mcL (4.3-11.1)
[2020-03-05 16:06] LABS: BUN/Creatinine Ratio 21 (6-26); Blood Urea Nitrogen 21 mg/dL (6-20); Calcium 8.6 mg/dL (8.6-10.3); Carbon Dioxide 23 mEq/L (23-29); Chloride 114 mEq/L (98-107); Glucose 87 mg/dL (70-105); Osmolality,Calculated 298 (280-300); Potassium 4.2 mEq/L (3.5-5.1); Sodium 143 mEq/L (136-145); eGFR For African Americans > 60 (> 60); eGFR For Non-African Americans > 60 (> 60)
[2020-03-05 16:07] LABS: Troponin I 0.03 ng/mL (< 0.04)
[2020-03-05] MEDS ORDERED: Furosemide 40 MG/4 ML VIAL IVP ONE (16:08)
[2020-03-05] MEDS ORDERED: Piperacillin/Tazobactam 3.375 GM in 0.9 % Sodium Chloride Mini Bag 100 ML IVPB ONE (16:27)
[2020-03-05] MEDS ORDERED: Ondansetron 4 MG/2 ML VIAL IVP PRN (17:33)
[2020-03-05] MEDS ORDERED: Naloxone 0.4 MG/ML INJ IVP PRN (17:33)
[2020-03-05] MEDS ORDERED: Perflutren Lipid Microsphere 1.3 ML in 0.9 % Sodium Chloride 8.7 ML IVP PRN (17:34)
[2020-03-05] MEDS ORDERED: Isovue-370 500 ML BOTTLE IVP ONE (17:39)
[2020-03-05] MEDS: Ampicillin/Sulbactam 1,500 MG in 0.9 % Sodium Chloride Mini Bag 100 ML IVPB SCH ×2 (21:02→23:55)
[2020-03-05] MEDS: *HR* Heparin 5,000 UNIT/ML VIAL SQ SCH (21:03)
[2020-03-06] MEDS ORDERED: Piperacillin/Tazobactam 3.375 GM in 0.9 % Sodium Chloride Mini Bag 100 ML IVPB SCH
[2020-03-06] MEDS: *HR* Heparin 5,000 UNIT/ML VIAL SQ SCH ×2 (04:47→17:59)
[2020-03-06] MEDS: Ampicillin/Sulbactam 1,500 MG in 0.9 % Sodium Chloride Mini Bag 100 ML IVPB SCH ×4 (04:48→23:26)
[2020-03-06 05:17] LABS: Basophils # 0.1 K/mcL (0.0-0.2); Eosinophils # 0.3 K/mcL (0.0-0.6); Eosinophils % 3.8 %; Hematocrit 43.2 % (37.5-50.1); Hemoglobin 13.9 g/dL (12.9-16.9); Immature Granulocytes % 0.5 % (0-4); Lymphocytes # 1.4 K/mcL (0.6-4.6); Lymphocytes % 16.6 %; Mean Corpuscular HGB Conc 32.2 g/dL (31.6-35.5); Mean Corpuscular Hemoglobin 31.2 pg (28.0-33.3); Mean Corpuscular Volume 96.9 fL (83.0-100.0); Mean Platelet Volume 9.4 fL (9.4-12.4); Monocytes # 0.6 K/mcL (0.0-1.3); Neutrophils # 5.8 K/mcL (1.6-8.9); Platelet Count 174 K/mcL (140-400); Red Blood Count 4.46 M/mcL (4.19-5.50); Red Cell Distribution Width 16.5 % (11.5-14.5); Segmented Neutrophils % 71.1 %; White Blood Count 8.2 K/mcL (4.3-11.1)
[2020-03-06 05:33] LABS: BUN/Creatinine Ratio 16 (6-26); Blood Urea Nitrogen 17 mg/dL (6-20); Calcium 8.6 mg/dL (8.6-10.3); Carbon Dioxide 25 mEq/L (23-29); Chloride 109 mEq/L (98-107); Glucose 87 mg/dL (70-105); Magnesium 2.1 mg/dL (1.6-2.6); Osmolality,Calculated 293 (280-300); Potassium 3.9 mEq/L (3.5-5.1); Sodium 141 mEq/L (136-145); eGFR For African Americans > 60 (> 60); eGFR For Non-African Americans > 60 (> 60)
[2020-03-06] MEDS: Furosemide 40 MG/4 ML VIAL IVP SCH (08:38)
[2020-03-06] MEDS ORDERED: Piperacillin/Tazobactam 3.375 GM in 0.9 % Sodium Chloride Mini Bag 100 ML IVPB ONE (16:27)
[2020-03-07] MEDS: *HR* Heparin 5,000 UNIT/ML VIAL SQ SCH (05:17)
[2020-03-07] MEDS: Ampicillin/Sulbactam 1,500 MG in 0.9 % Sodium Chloride Mini Bag 100 ML IVPB SCH ×2 (05:17→12:09)
[2020-03-07] MEDS: Furosemide 40 MG/4 ML VIAL IVP SCH (08:16)
[2020-03-07 11:42] VITALS: BP 118/85
== END 2020-03-07 15:10 | disposition home or self-care (01) ==
LOC: SUATTDRO → 2ANU 15:03 → EMEROOARM 15:03 → SUATTDRO 18:11 → 2ANU 18:52
PROVIDERS: ADMIT Internal Medicine; ATTEND Internal Medicine

== ENCOUNTER 2020-04-20 09:46 | Inpatient (IN) ==
[2020-04-20] MEDS ORDERED: 0.9 % Sodium Chloride 1,000 ML IVC ONE (10:27)
[2020-04-20 10:42] LABS: Basophils # 0.1 K/mcL (0.0-0.2); Basophils % 0.8 %; Eosinophils # 0.2 K/mcL (0.0-0.6); Eosinophils % 1.7 %; Hematocrit 46.3 % (37.5-50.1); Hemoglobin 15.3 g/dL (12.9-16.9); Immature Granulocytes % 0.2 % (0-4); Lymphocytes # 1.4 K/mcL (0.6-4.6); Lymphocytes % 13.9 %; Mean Corpuscular Volume 90.8 fL (83.0-100.0); Mean Platelet Volume 9.4 fL (9.4-12.4); Monocytes # 0.6 K/mcL (0.0-1.3); Monocytes % 6.5 %; Neutrophils # 7.6 K/mcL (1.6-8.9); Platelet Count 165 K/mcL (140-400); Red Cell Distribution Width 12.8 % (11.5-14.5); Segmented Neutrophils % 76.9 %; White Blood Count 9.9 K/mcL (4.3-11.1)
[2020-04-20] MEDS ORDERED: Isovue-370 500 ML BOTTLE IVP ONE (10:46)
[2020-04-20 11:02] LABS: Alanine Aminotransferase 12 Units/L (7-52); Albumin 4.2 g/dL (3.5-5.7); Albumin/Globulin Ratio 1.2 (1.1-2.2); Alkaline Phosphatase 116 Units/L (34-104); Aspartate Amino Transferase 18 Units/L (13-39); BUN/Creatinine Ratio 40 (6-26); Bilirubin,Total 1.7 mg/dL (0.3-1.0); Blood Urea Nitrogen 46 mg/dL (6-20); Carbon Dioxide 25 mEq/L (23-29); Chloride 105 mEq/L (98-107); Globulin 3.5 g/dL (2.4-3.5); Glucose 110 mg/dL (70-105); Osmolality,Calculated 305 (280-300); Potassium 3.6 mEq/L (3.5-5.1); Sodium 141 mEq/L (136-145); Total Protein 7.7 g/dL (6.4-8.9); eGFR For African Americans > 60 (> 60); eGFR For Non-African Americans > 60 (> 60)
[2020-04-20] MEDS ORDERED: Isovue-370 500 ML BOTTLE PO ONE (11:57)
[2020-04-20] MEDS ORDERED: Ondansetron 4 MG/2 ML VIAL IVP PRN (13:36)
[2020-04-20] MEDS ORDERED: Naloxone 0.4 MG/ML INJ IVP PRN (13:36)
[2020-04-20] MEDS: 0.9 % Sodium Chloride 1,000 ML IVC SCH (17:04)
[2020-04-20] MEDS: *HR* Heparin 5,000 UNIT/ML VIAL SQ SCH (17:13)
[2020-04-21] MEDS: 0.9 % Sodium Chloride 1,000 ML IVC SCH ×2 (03:12→11:42)
[2020-04-21 03:57] LABS: Basophils % 0.7 %; Eosinophils # 0.2 K/mcL (0.0-0.6); Eosinophils % 3.7 %; Hemoglobin 13.2 g/dL (12.9-16.9); Immature Granulocytes % 0.4 % (0-4); Lymphocytes # 1.2 K/mcL (0.6-4.6); Lymphocytes % 23.2 %; Mean Corpuscular Hemoglobin 30.3 pg (28.0-33.3); Mean Corpuscular Volume 91.7 fL (83.0-100.0); Mean Platelet Volume 9.6 fL (9.4-12.4); Monocytes # 0.4 K/mcL (0.0-1.3); Monocytes % 7.9 %; Neutrophils # 3.4 K/mcL (1.6-8.9); Platelet Count 109 K/mcL (140-400); Red Blood Count 4.36 M/mcL (4.19-5.50); Red Cell Distribution Width 12.8 % (11.5-14.5); Segmented Neutrophils % 64.1 %; White Blood Count 5.4 K/mcL (4.3-11.1)
[2020-04-21 04:15] LABS: Magnesium 2.3 mg/dL (1.6-2.6); Phosphorous 2.5 mg/dL (2.7-4.5)
[2020-04-21 04:16] LABS: BUN/Creatinine Ratio 44 (6-26); Blood Urea Nitrogen 37 mg/dL (6-20); Calcium 8.1 mg/dL (8.6-10.3); Carbon Dioxide 24 mEq/L (23-29); Chloride 110 mEq/L (98-107); Glucose 72 mg/dL (70-105); Osmolality,Calculated 299 (280-300); Potassium 3.4 mEq/L (3.5-5.1); Sodium 141 mEq/L (136-145); eGFR For African Americans > 60 (> 60); eGFR For Non-African Americans > 60 (> 60)
[2020-04-21] MEDS: *HR* Heparin 5,000 UNIT/ML VIAL SQ SCH ×2 (05:15→17:29)
[2020-04-21] MEDS ORDERED: D5% in Water 1,000 ML IVC PRN (05:58)
[2020-04-21] MEDS ORDERED: Dextrose Gel 15 GM/37.5 ML TUBE PO PRN ×2 (05:58)
[2020-04-21] MEDS ORDERED: Furosemide 20 MG/2 ML VIAL IVP SCH (09:00)
[2020-04-21] MEDS: *HR* Dextrose 50 % in Water (Vial) 50 ML VIAL IVP PRN ×2 (12:27→18:09)
[2020-04-21] MEDS: D5% in Water 1,000 ML IVC SCH (18:12)
[2020-04-22] MEDS: D5% in Water 1,000 ML IVC SCH (03:30)
[2020-04-22] MEDS: *HR* Heparin 5,000 UNIT/ML VIAL SQ SCH ×2 (05:22→22:09)
[2020-04-22 09:03] LABS: White Blood Count 5.2 K/mcL (4.3-11.1)
[2020-04-22 09:04] LABS: Basophils % 0.8 %; Eosinophils # 0.3 K/mcL (0.0-0.6); Hematocrit 40.7 % (37.5-50.1); Hemoglobin 13.9 g/dL (12.9-16.9); Immature Granulocytes % 0.4 % (0-4); Lymphocytes % 18.9 %; Mean Corpuscular HGB Conc 34.2 g/dL (31.6-35.5); Mean Corpuscular Hemoglobin 30.2 pg (28.0-33.3); Mean Corpuscular Volume 88.3 fL (83.0-100.0); Mean Platelet Volume 9.8 fL (9.4-12.4); Monocytes # 0.4 K/mcL (0.0-1.3); Monocytes % 6.9 %; Neutrophils # 3.5 K/mcL (1.6-8.9); Platelet Count 103 K/mcL (140-400); Red Blood Count 4.61 M/mcL (4.19-5.50); Red Cell Distribution Width 12.5 % (11.5-14.5)
[2020-04-22 09:26] LABS: Alanine Aminotransferase 11 Units/L (7-52); Albumin 3.2 g/dL (3.5-5.7); Albumin/Globulin Ratio 1.2 (1.1-2.2); Alkaline Phosphatase 93 Units/L (34-104); Aspartate Amino Transferase 19 Units/L (13-39); BUN/Creatinine Ratio 28 (6-26); Bilirubin,Total 1.4 mg/dL (0.3-1.0); Blood Urea Nitrogen 20 mg/dL (6-20); Carbon Dioxide 24 mEq/L (23-29); Chloride 105 mEq/L (98-107); Globulin 2.7 g/dL (2.4-3.5); Glucose 94 mg/dL (70-105); Osmolality,Calculated 282 (280-300); Potassium 3.3 mEq/L (3.5-5.1); Sodium 135 mEq/L (136-145); Total Protein 5.9 g/dL (6.4-8.9); eGFR For African Americans > 60 (> 60); eGFR For Non-African Americans > 60 (> 60)
[2020-04-22] MEDS ORDERED: *HR* Propofol 200 MG/20 ML VIAL IVP ONE (09:57)
[2020-04-22] MEDS ORDERED: *HR* FentaNYL (PF) 100 MCG/2 ML VIAL ONE (09:57)
[2020-04-22] MEDS ORDERED: *HR* Midazolam HCl 2 MG/2 ML VIAL ONE (09:57)
[2020-04-22] MEDS ORDERED: NiCARdipine 2.5 MG/10 ML Syringe IVPB ONE (12:05)
[2020-04-22] MEDS ORDERED: Acetaminophen IV 1,000 MG/100 ML BAG IVPB ONE (12:05)
[2020-04-22] MEDS ORDERED: *HR* Vasopressin 20 UNIT/ML VIAL ONE (12:05)
[2020-04-22] MEDS ORDERED: EPHEDrine 50 MG/ML VIAL ONE (12:07)
[2020-04-22] MEDS ORDERED: Fluconazole 200 MG/100 ML 100 MG/50 ML BAG IVPB STA (12:07)
[2020-04-22] MEDS ORDERED: CeFAZolin Syr 2,000MG/20 ML 2,000 MG/20 ML SYRINGE IVPB ONE ×2 (12:08→15:35)
[2020-04-22] MEDS ORDERED: *HR* Phenylephrine 10 MG/ML VIAL ONE (12:12)
[2020-04-22] MEDS ORDERED: *HR* Rocuronium Bromide 50 MG/5 ML VIAL ONE (12:33)
[2020-04-22] MEDS ORDERED: *HR* PHENYLEPHRINE 1,000 MCG/10 ML SYRINGE IVP ONE (12:57)
[2020-04-22] MEDS ORDERED: Albuterol 2.5 MG/3 ML NEBULIZER IH PRN (13:18)
[2020-04-22] MEDS ORDERED: Ondansetron 4 MG/2 ML VIAL IVP PRN ×2 (13:18→18:31)
[2020-04-22] MEDS ORDERED: *HR* FentaNYL (PF) 100 MCG/2 ML VIAL IVP PRN (13:18)
[2020-04-22] MEDS ORDERED: EPINEPHrine 1 MG/ML VIAL ONE (13:35)
[2020-04-22] MEDS ORDERED: *HR* HYDROMORPHONE 2 MG/ML VIAL ONE ×2 (13:41→17:53)
[2020-04-22 16:01] LABS: ABG Base Excess -5 mEq/L (-2 to 3); ABG Chloride 103 mEq/L (98-107); ABG Glucose 185 mg/dL (60-95); ABG HCO3 23 mEq/L (21-27); ABG Ionized Calcium 1.17 mmol/L (1.15-1.35); ABG Oxygen Saturation 95 % (95-98); ABG PCO2 55 mmHg (35-45); ABG PH 7.23 pH Units (7.32-7.45); ABG PO2 92 mmHg (85-104); ABG TCO2 25 mEq/L (20-26)
[2020-04-22] MEDS ORDERED: Albumin Human 5% 25.0 GM/500 ML IV.SOLN ONE (16:27)
[2020-04-22 17:32] LABS: ABG Base Excess -5 mEq/L (-2 to 3); ABG Chloride 102 mEq/L (98-107); ABG Glucose 177 mg/dL (60-95); ABG HCO3 22 mEq/L (21-27); ABG Oxygen Saturation 100 % (95-98); ABG PCO2 47 mmHg (35-45); ABG PH 7.28 pH Units (7.32-7.45); ABG PO2 251 mmHg (85-104); ABG TCO2 23 mEq/L (20-26)
[2020-04-22] MEDS ORDERED: 0.9 % Sodium Chloride 1,000 ML IVC SCH (18:31)
[2020-04-22] MEDS ORDERED: Naloxone 0.4 MG/ML INJ IVP PRN (18:31)
[2020-04-22] MEDS ORDERED: Morphine PCA 30 MG/ 30 ML 30 ML PCA.VIAL IVC SCH (18:31)
[2020-04-22 19:07] LABS: Hematocrit 39.7 % (37.5-50.1); Hemoglobin 13.4 g/dL (12.9-16.9); Mean Corpuscular HGB Conc 33.8 g/dL (31.6-35.5); Mean Corpuscular Hemoglobin 29.9 pg (28.0-33.3); Mean Corpuscular Volume 88.6 fL (83.0-100.0); Mean Platelet Volume 9.6 fL (9.4-12.4); Platelet Count 189 K/mcL (140-400); Red Blood Count 4.48 M/mcL (4.19-5.50); Red Cell Distribution Width 12.6 % (11.5-14.5)
[2020-04-22 19:13] LABS: White Blood Count 19.6 K/mcL (4.3-11.1)
[2020-04-22 19:29] LABS: BUN/Creatinine Ratio 22 (6-26); Blood Urea Nitrogen 17 mg/dL (6-20); Calcium 7.6 mg/dL (8.6-10.3); Carbon Dioxide 18 mEq/L (23-29); Chloride 104 mEq/L (98-107); Glucose 213 mg/dL (70-105); Osmolality,Calculated 284 (280-300); Potassium 3.9 mEq/L (3.5-5.1); Sodium 133 mEq/L (136-145); eGFR For African Americans > 60 (> 60); eGFR For Non-African Americans > 60 (> 60)
[2020-04-22 19:30] LABS: Magnesium 1.5 mg/dL (1.6-2.6)
[2020-04-22] MEDS ORDERED: 0.9 % Sodium Chloride 1,000 ML ONE (19:35)
[2020-04-22] MEDS: Albumin Human 5% 12.5 GM/250 ML IV.SOLN IVC SCH ×2 (19:36→22:17)
[2020-04-22] MEDS: 0.9 % Sodium Chloride 1,000 ML IVC SCH (19:36)
[2020-04-22] MEDS: Ipratropium/Albuterol Neb 3 ML IH SCH ×2 (19:44→23:06)
[2020-04-22] MEDS ORDERED: 0.9 % Sodium Chloride 1,000 ML IVC ONE (21:46)
[2020-04-22] MEDS: Morphine PCA 30 MG/ 30 ML 30 ML PCA.VIAL IVC SCH (22:43)
[2020-04-23] MEDS: Ketorolac 15 MG/ML VIAL IVP SCH ×2 (00:08→05:49)
[2020-04-23] MEDS: Ipratropium/Albuterol Neb 3 ML IH SCH ×6 (03:38→23:57)
[2020-04-23 04:29] LABS: Hematocrit 33.4 % (37.5-50.1); Mean Corpuscular HGB Conc 33.8 g/dL (31.6-35.5); Mean Corpuscular Hemoglobin 30.6 pg (28.0-33.3); Mean Corpuscular Volume 90.5 fL (83.0-100.0); Mean Platelet Volume 10.5 fL (9.4-12.4); Platelet Count 104 K/mcL (140-400); Red Blood Count 3.69 M/mcL (4.19-5.50); Red Cell Distribution Width 12.7 % (11.5-14.5); White Blood Count 10.2 K/mcL (4.3-11.1)
[2020-04-23 04:30] LABS: Hemoglobin 11.3 g/dL (12.9-16.9)
[2020-04-23 04:45] LABS: % Iron Saturation 11 % (20-55); BUN/Creatinine Ratio 20 (6-26); Blood Urea Nitrogen 17 mg/dL (6-20); Calcium 7.3 mg/dL (8.6-10.3); Carbon Dioxide 18 mEq/L (23-29); Chloride 108 mEq/L (98-107); Glucose 183 mg/dL (70-105); Iron 15 mcg/dL (65-175); Magnesium 2.4 mg/dL (1.6-2.6); Osmolality,Calculated 288 (280-300); Phosphorous 4.3 mg/dL (2.7-4.5); Potassium 4.2 mEq/L (3.5-5.1); Sodium 136 mEq/L (136-145); Transferrin 100 mg/dL (203-362); eGFR For African Americans > 60 (> 60); eGFR For Non-African Americans > 60 (> 60)
[2020-04-23] MEDS: 0.9 % Sodium Chloride 1,000 ML IVC SCH ×3 (04:58→19:39)
[2020-04-23] MEDS: Famotidine 20 MG/2 ML VIAL IVP SCH ×2 (05:48→16:44)
[2020-04-23] MEDS: *HR* Heparin 5,000 UNIT/ML VIAL SQ SCH ×3 (05:49→21:12)
[2020-04-23] MEDS ORDERED: Iron Sucrose Complex 250 MG in 0.9 % Sodium Chloride 250 ML IVPB SCH (09:00)
[2020-04-24] MEDS: 0.9 % Sodium Chloride 1,000 ML IVC SCH ×3 (01:00→17:10)
[2020-04-24] MEDS: Ipratropium/Albuterol Neb 3 ML IH SCH ×5 (03:58→20:16)
[2020-04-24] MEDS: Morphine PCA 30 MG/ 30 ML 30 ML PCA.VIAL IVC SCH (03:58)
[2020-04-24 04:21] LABS: Hematocrit 28.9 % (37.5-50.1); Mean Corpuscular HGB Conc 33.2 g/dL (31.6-35.5); Mean Corpuscular Volume 93.2 fL (83.0-100.0); Mean Platelet Volume 10.5 fL (9.4-12.4); Platelet Count 101 K/mcL (140-400); Red Cell Distribution Width 13.2 % (11.5-14.5); White Blood Count 12.1 K/mcL (4.3-11.1)
[2020-04-24 04:27] LABS: Hemoglobin 9.6 g/dL (12.9-16.9)
[2020-04-24 04:40] LABS: BUN/Creatinine Ratio 27 (6-26); Blood Urea Nitrogen 22 mg/dL (6-20); Calcium 7.3 mg/dL (8.6-10.3); Carbon Dioxide 22 mEq/L (23-29); Chloride 110 mEq/L (98-107); Glucose 117 mg/dL (70-105); Magnesium 2.4 mg/dL (1.6-2.6); Osmolality,Calculated 288 (280-300); Phosphorous 1.9 mg/dL (2.7-4.5); Potassium 4.2 mEq/L (3.5-5.1); Sodium 137 mEq/L (136-145); eGFR For African Americans > 60 (> 60); eGFR For Non-African Americans > 60 (> 60)
[2020-04-24] MEDS: *HR* Heparin 5,000 UNIT/ML VIAL SQ SCH ×3 (05:51→22:24)
[2020-04-24] MEDS: Famotidine 20 MG/2 ML VIAL IVP SCH ×2 (05:51→17:08)
[2020-04-24] MEDS: Azithromycin 500 MG in 0.9 % Sodium Chloride 250 ML IVPB SCH (11:49)
[2020-04-25] MEDS: Ipratropium/Albuterol Neb 3 ML IH SCH ×7 (00:04→23:26)
[2020-04-25] MEDS: 0.9 % Sodium Chloride 1,000 ML IVC SCH ×2 (03:10→14:25)
[2020-04-25 04:56] LABS: Hematocrit 26.1 % (37.5-50.1); Hemoglobin 8.4 g/dL (12.9-16.9); Mean Corpuscular HGB Conc 32.2 g/dL (31.6-35.5); Mean Corpuscular Hemoglobin 30.3 pg (28.0-33.3); Mean Corpuscular Volume 94.2 fL (83.0-100.0); Mean Platelet Volume 11.1 fL (9.4-12.4); Platelet Count 101 K/mcL (140-400); Red Blood Count 2.77 M/mcL (4.19-5.50); Red Cell Distribution Width 13.5 % (11.5-14.5); White Blood Count 8.8 K/mcL (4.3-11.1)
[2020-04-25 05:14] LABS: BUN/Creatinine Ratio 43 (6-26); Blood Urea Nitrogen 26 mg/dL (6-20); Calcium 7.4 mg/dL (8.6-10.3); Carbon Dioxide 20 mEq/L (23-29); Chloride 115 mEq/L (98-107); Glucose 103 mg/dL (70-105); Magnesium 2.3 mg/dL (1.6-2.6); Osmolality,Calculated 297 (280-300); Phosphorous 1.7 mg/dL (2.7-4.5); Potassium 3.7 mEq/L (3.5-5.1); Sodium 141 mEq/L (136-145); eGFR For African Americans > 60 (> 60); eGFR For Non-African Americans > 60 (> 60)
[2020-04-25] MEDS: *HR* Heparin 5,000 UNIT/ML VIAL SQ SCH ×3 (05:58→20:17)
[2020-04-25] MEDS: Famotidine 20 MG/2 ML VIAL IVP SCH ×2 (05:58→17:45)
[2020-04-25] MEDS: Morphine PCA 30 MG/ 30 ML 30 ML PCA.VIAL IVC SCH (05:59)
[2020-04-25] MEDS: Azithromycin 500 MG in 0.9 % Sodium Chloride 250 ML IVPB SCH (11:04)
[2020-04-25] MEDS ORDERED: Furosemide 40 MG/4 ML VIAL ONE (23:52)
[2020-04-26] MEDS: Furosemide 40 MG/4 ML VIAL IVP ONE ×2 (01:06)
[2020-04-26] MEDS: Ipratropium/Albuterol Neb 3 ML IH SCH ×6 (03:37→23:21)
[2020-04-26] MEDS: Morphine PCA 30 MG/ 30 ML 30 ML PCA.VIAL IVC SCH ×3 (04:55→18:26)
[2020-04-26] MEDS: *HR* Heparin 5,000 UNIT/ML VIAL SQ SCH ×3 (05:38→23:21)
[2020-04-26] MEDS: Famotidine 20 MG/2 ML VIAL IVP SCH ×2 (05:38→17:25)
[2020-04-26 06:26] LABS: Hematocrit 27.7 % (37.5-50.1); Mean Corpuscular HGB Conc 32.5 g/dL (31.6-35.5); Mean Corpuscular Hemoglobin 30.9 pg (28.0-33.3); Mean Corpuscular Volume 95.2 fL (83.0-100.0); Mean Platelet Volume 10.8 fL (9.4-12.4); Platelet Count 134 K/mcL (140-400); Red Blood Count 2.91 M/mcL (4.19-5.50); White Blood Count 9.3 K/mcL (4.3-11.1)
[2020-04-26 06:45] LABS: BUN/Creatinine Ratio 41 (6-26); Blood Urea Nitrogen 30 mg/dL (6-20); Calcium 7.8 mg/dL (8.6-10.3); Carbon Dioxide 26 mEq/L (23-29); Chloride 114 mEq/L (98-107); Glucose 127 mg/dL (70-105); Magnesium 2.2 mg/dL (1.6-2.6); Osmolality,Calculated 310 (280-300); Phosphorous 2.2 mg/dL (2.7-4.5); Potassium 3.7 mEq/L (3.5-5.1); Sodium 146 mEq/L (136-145); eGFR For African Americans > 60 (> 60); eGFR For Non-African Americans > 60 (> 60)
[2020-04-26] MEDS ORDERED: Potassium Chloride Elixir 20 MEQ/15 ML UDC GTUBE SCH (12:15)
[2020-04-26] MEDS: Furosemide 40 MG/4 ML VIAL IVP SCH ×2 (12:21→19:43)
[2020-04-26] MEDS: Azithromycin 500 MG in 0.9 % Sodium Chloride 250 ML IVPB SCH (12:21)
[2020-04-26] MEDS ORDERED: Acetylcysteine 10% 2 ML INHSOL IH SCH (12:45)
[2020-04-26] MEDS: Acetylcysteine 10% 2 ML INHSOL IH SCH ×2 (15:30→19:44)
[2020-04-26] MEDS: Potassium Chloride Elixir 20 MEQ/15 ML UDC GTUBE SCH (19:43)
[2020-04-26] MEDS: 0.9 % Sodium Chloride 1,000 ML IVC SCH (23:09)
[2020-04-26] MEDS ORDERED: Furosemide 40 MG in 0.9 % Sodium Chloride 50 ML IV ONE (23:51)
[2020-04-27] MEDS: Acetylcysteine 10% 2 ML INHSOL IH SCH ×4 (04:06→19:44)
[2020-04-27] MEDS: Ipratropium/Albuterol Neb 3 ML IH SCH ×8 (04:06→23:53)
[2020-04-27 05:10] LABS: Hematocrit 28.8 % (37.5-50.1); Hemoglobin 9.3 g/dL (12.9-16.9); Mean Corpuscular HGB Conc 32.3 g/dL (31.6-35.5); Mean Corpuscular Hemoglobin 30.8 pg (28.0-33.3); Mean Corpuscular Volume 95.4 fL (83.0-100.0); Mean Platelet Volume 10.9 fL (9.4-12.4); Platelet Count 155 K/mcL (140-400); Red Blood Count 3.02 M/mcL (4.19-5.50); Red Cell Distribution Width 14.4 % (11.5-14.5); White Blood Count 10.4 K/mcL (4.3-11.1)
[2020-04-27 05:30] LABS: BUN/Creatinine Ratio 44 (6-26); Blood Urea Nitrogen 38 mg/dL (6-20); Calcium 7.8 mg/dL (8.6-10.3); Carbon Dioxide 30 mEq/L (23-29); Chloride 115 mEq/L (98-107); Glucose 138 mg/dL (70-105); Magnesium 2.4 mg/dL (1.6-2.6); Osmolality,Calculated 319 (280-300); Phosphorous 2.4 mg/dL (2.7-4.5); Potassium 4.3 mEq/L (3.5-5.1); Sodium 149 mEq/L (136-145); eGFR For African Americans > 60 (> 60); eGFR For Non-African Americans > 60 (> 60)
[2020-04-27] MEDS: *HR* Heparin 5,000 UNIT/ML VIAL SQ SCH ×3 (06:06→21:38)
[2020-04-27] MEDS: Famotidine 20 MG/2 ML VIAL IVP SCH ×2 (06:07→17:16)
[2020-04-27] MEDS: Potassium Chloride Elixir 20 MEQ/15 ML UDC GTUBE SCH (08:20)
[2020-04-27] MEDS: Furosemide 40 MG/4 ML VIAL IVP SCH (08:20)
[2020-04-27] MEDS: Azithromycin 500 MG in 0.9 % Sodium Chloride 250 ML IVPB SCH (10:38)
[2020-04-27] MEDS ORDERED: Potassium Chloride 20 MEQ in D5% in Water 1,000 ML IVC SCH (13:45)
[2020-04-27] MEDS: Morphine PCA 30 MG/ 30 ML 30 ML PCA.VIAL IVC SCH (14:26)
[2020-04-27] MEDS ORDERED: Amiodarone Premix 360 MG/200 ML BAG IVC ONE (16:45)
[2020-04-27] MEDS ORDERED: Amiodarone Premix 150 MG/100 ML BAG IVPB ONE (16:45)
[2020-04-27] MEDS: Docusate Oral Soln 100 MG/10 ML UDC GTUBE SCH (21:37)
[2020-04-27] MEDS: Amiodarone Premix 360 MG/200 ML BAG IVC SCH (23:48)
[2020-04-28] MEDS: Ipratropium/Albuterol Neb 3 ML IH SCH ×6 (04:21→23:22)
[2020-04-28] MEDS: Acetylcysteine 10% 2 ML INHSOL IH SCH ×4 (04:21→23:22)
[2020-04-28] MEDS: Famotidine 20 MG/2 ML VIAL IVP SCH ×2 (05:02→16:51)
[2020-04-28] MEDS: *HR* Heparin 5,000 UNIT/ML VIAL SQ SCH ×3 (05:03→23:16)
[2020-04-28 05:06] LABS: Hematocrit 33.6 % (37.5-50.1); Hemoglobin 10.6 g/dL (12.9-16.9); Mean Corpuscular HGB Conc 31.5 g/dL (31.6-35.5); Mean Corpuscular Hemoglobin 30.2 pg (28.0-33.3); Mean Corpuscular Volume 95.7 fL (83.0-100.0); Platelet Count 180 K/mcL (140-400); Red Blood Count 3.51 M/mcL (4.19-5.50); Red Cell Distribution Width 14.5 % (11.5-14.5); White Blood Count 13.2 K/mcL (4.3-11.1)
[2020-04-28 05:24] LABS: BUN/Creatinine Ratio 53 (6-26); Blood Urea Nitrogen 48 mg/dL (6-20); Calcium 7.7 mg/dL (8.6-10.3); Carbon Dioxide 29 mEq/L (23-29); Chloride 112 mEq/L (98-107); Glucose 156 mg/dL (70-105); Magnesium 2.5 mg/dL (1.6-2.6); Osmolality,Calculated 320 (280-300); Phosphorous 3.2 mg/dL (2.7-4.5); Potassium 4.3 mEq/L (3.5-5.1); Sodium 147 mEq/L (136-145); eGFR For African Americans > 60 (> 60); eGFR For Non-African Americans > 60 (> 60)
[2020-04-28] MEDS: Docusate Oral Soln 100 MG/10 ML UDC GTUBE SCH (08:39)
[2020-04-28] MEDS ORDERED: D10% in Water 500 ML IVC PRN (10:33)
[2020-04-28] MEDS: Amiodarone Premix 360 MG/200 ML BAG IVC SCH ×2 (11:16→23:31)
[2020-04-28] MEDS: Azithromycin 500 MG in 0.9 % Sodium Chloride 250 ML IVPB SCH (11:16)
[2020-04-28] MEDS ORDERED: D5% in Water 1,000 ML IVC PRN (12:06)
[2020-04-28] MEDS ORDERED: *HR* Dextrose 50 % in Water (Vial) 50 ML VIAL IVP PRN (12:06)
[2020-04-28] MEDS ORDERED: Dextrose Gel 15 GM/37.5 ML TUBE PO PRN ×2 (12:06)
[2020-04-28] MEDS: Potassium Chloride 20 MEQ in D5% in Water 1,000 ML IVC SCH ×2 (12:35→23:16)
[2020-04-28] MEDS ORDERED: Clinimix E 5%-20% SOLUTION 2,000 ML IVC SCH (17:00)
[2020-04-28] MEDS: Insulin LISPRO 300 UNITS/3 ML VIAL SUBQ SCH (17:51)
[2020-04-29] MEDS: Insulin LISPRO 300 UNITS/3 ML VIAL SUBQ SCH ×5 (01:57→23:26)
[2020-04-29] MEDS: Acetylcysteine 10% 2 ML INHSOL IH SCH ×2 (03:40→07:10)
[2020-04-29] MEDS: Ipratropium/Albuterol Neb 3 ML IH SCH ×6 (03:40→23:35)
[2020-04-29 05:11] LABS: Hematocrit 36.4 % (37.5-50.1); Hemoglobin 11.3 g/dL (12.9-16.9); Mean Corpuscular Hemoglobin 30.5 pg (28.0-33.3); Mean Corpuscular Volume 98.4 fL (83.0-100.0); Mean Platelet Volume 11.7 fL (9.4-12.4); Platelet Count 183 K/mcL (140-400); Red Cell Distribution Width 14.4 % (11.5-14.5); White Blood Count 14.9 K/mcL (4.3-11.1)
[2020-04-29 05:27] LABS: BUN/Creatinine Ratio 55 (6-26); Blood Urea Nitrogen 51 mg/dL (6-20); Calcium 7.7 mg/dL (8.6-10.3); Carbon Dioxide 30 mEq/L (23-29); Chloride 111 mEq/L (98-107); Glucose 207 mg/dL (70-105); Magnesium 2.5 mg/dL (1.6-2.6); Osmolality,Calculated 320 (280-300); Phosphorous 4.1 mg/dL (2.7-4.5); Potassium 4.4 mEq/L (3.5-5.1); Sodium 145 mEq/L (136-145); eGFR For African Americans > 60 (> 60); eGFR For Non-African Americans > 60 (> 60)
[2020-04-29] MEDS: Famotidine 20 MG/2 ML VIAL IVP SCH ×2 (05:41→17:36)
[2020-04-29] MEDS: *HR* Heparin 5,000 UNIT/ML VIAL SQ SCH ×3 (05:41→23:18)
[2020-04-29] MEDS: Potassium Chloride 20 MEQ in D5% in Water 1,000 ML IVC SCH (05:48)
[2020-04-29] MEDS ORDERED: Ringers Solution, Lactated 1,000 ML IVC ONE ×2 (08:48→08:50)
[2020-04-29] MEDS: Azithromycin 500 MG in 0.9 % Sodium Chloride 250 ML IVPB SCH (11:56)
[2020-04-29] MEDS: Amiodarone Premix 360 MG/200 ML BAG IVC SCH ×2 (11:57→23:49)
[2020-04-29] MEDS: D5% in Water 1,000 ML IVC SCH (13:50)
[2020-04-29] MEDS ORDERED: Clinimix E 5%-20% SOLUTION 2,000 ML with MVI, adult with vitamin K 10 ML IVC SCH (17:00)
[2020-04-30] MEDS: Ipratropium/Albuterol Neb 3 ML IH SCH ×6 (03:39→23:59)
[2020-04-30] MEDS: D5% in Water 1,000 ML IVC SCH (04:45)
[2020-04-30] MEDS ORDERED: Morphine PCA 30 MG/ 30 ML 30 ML PCA.VIAL IVC SCH (05:00)
[2020-04-30] MEDS ORDERED: Ringers Solution, Lactated 2,000 ML ONE (05:02)
[2020-04-30 05:04] LABS: Hematocrit 35.5 % (37.5-50.1); Hemoglobin 11.3 g/dL (12.9-16.9); Mean Corpuscular HGB Conc 31.8 g/dL (31.6-35.5); Mean Corpuscular Hemoglobin 30.6 pg (28.0-33.3); Mean Corpuscular Volume 96.2 fL (83.0-100.0); Platelet Count 188 K/mcL (140-400); Red Blood Count 3.69 M/mcL (4.19-5.50); Red Cell Distribution Width 14.4 % (11.5-14.5); White Blood Count 21.7 K/mcL (4.3-11.1)
[2020-04-30 05:20] LABS: % Iron Saturation 19 % (20-55); BUN/Creatinine Ratio 55 (6-26); Blood Urea Nitrogen 42 mg/dL (6-20); Calcium 7.5 mg/dL (8.6-10.3); Carbon Dioxide 30 mEq/L (23-29); Chloride 106 mEq/L (98-107); Glucose 224 mg/dL (70-105); Iron 33 mcg/dL (65-175); Magnesium 2.2 mg/dL (1.6-2.6); Osmolality,Calculated 305 (280-300); Phosphorous 3.6 mg/dL (2.7-4.5); Potassium 4.4 mEq/L (3.5-5.1); Sodium 139 mEq/L (136-145); Transferrin 123 mg/dL (203-362); eGFR For African Americans > 60 (> 60); eGFR For Non-African Americans > 60 (> 60)
[2020-04-30] MEDS: Famotidine 20 MG/2 ML VIAL IVP SCH ×2 (05:29→17:57)
[2020-04-30] MEDS: *HR* Heparin 5,000 UNIT/ML VIAL SQ SCH ×3 (05:29→21:30)
[2020-04-30] MEDS: Insulin LISPRO 300 UNITS/3 ML VIAL SUBQ SCH ×4 (05:33→18:07)
[2020-04-30] MEDS: Piperacillin/Tazobactam 3.375 GM in 0.9 % Sodium Chloride Mini Bag 100 ML IVPB SCH ×3 (11:59→23:57)
[2020-04-30] MEDS: Amiodarone Premix 360 MG/200 ML BAG IVC SCH (12:13)
[2020-04-30 14:35] LABS: Influenza A PCR Negative (Negative); Influenza B PCR Negative (Negative); Resp. Syncytial Virus PCR Negative (Negative)
[2020-04-30 14:41] LABS: SARS-CoV-2 by PCR (In House) Negative (Negative)
[2020-04-30] MEDS ORDERED: Ringers Solution, Lactated 1,000 ML IVC ONE ×6 (14:54→20:59)
[2020-04-30] MEDS ORDERED: Clinimix E 5%-20% SOLUTION 2,000 ML IVC SCH ×2 (17:00→20:59)
[2020-04-30] MEDS ORDERED: Clinimix E 5%-20% SOLUTION 2,000 ML, Parenteral Amino Acid 10% 0 ML with MVI, adult wi... IVC SCH (17:00)
[2020-04-30] MEDS ORDERED: Dexamethasone 4 MG/ML VIAL ONE (18:38)
[2020-04-30] MEDS ORDERED: *HR* Rocuronium Bromide 50 MG/5 ML VIAL ONE (18:38)
[2020-04-30] MEDS ORDERED: Ondansetron 4 MG/2 ML VIAL ONE (18:38)
[2020-04-30] MEDS ORDERED: *HR* Succinylcholine 200 MG/10 ML VIAL IVP ONE (18:38)
[2020-04-30] MEDS ORDERED: Lidocaine -MPF 2% 2 ML VIAL ONE (18:38)
[2020-04-30] MEDS ORDERED: *HR* FentaNYL (PF) 100 MCG/2 ML VIAL ONE ×2 (18:39→20:09)
[2020-04-30] MEDS ORDERED: *HR* Propofol 200 MG/20 ML VIAL IVP ONE (18:39)
[2020-04-30] MEDS ORDERED: Ketorolac 30 MG/ML VIAL ONE (19:08)
[2020-04-30] MEDS ORDERED: *HR* PHENYLEPHRINE 1,000 MCG/10 ML SYRINGE IVP ONE (19:37)
[2020-04-30] MEDS ORDERED: Amiodarone Premix 360 MG/200 ML BAG IVC SCH (20:59)
[2020-04-30] MEDS ORDERED: Ondansetron 4 MG/2 ML VIAL IVP PRN (20:59)
[2020-04-30] MEDS ORDERED: Naloxone 0.4 MG/ML INJ IVP PRN (20:59)
[2020-04-30] MEDS ORDERED: D5% in Water 1,000 ML IVC SCH (20:59)
[2020-05-01] MEDS: Insulin LISPRO 300 UNITS/3 ML VIAL SUBQ SCH ×5 (00:05→23:40)
[2020-05-01] MEDS: Ipratropium/Albuterol Neb 3 ML IH SCH ×6 (03:51→23:41)
[2020-05-01 04:02] LABS: Hematocrit 34.3 % (37.5-50.1); Mean Corpuscular HGB Conc 32.1 g/dL (31.6-35.5); Mean Corpuscular Hemoglobin 31.3 pg (28.0-33.3); Mean Corpuscular Volume 97.4 fL (83.0-100.0); Mean Platelet Volume 11.9 fL (9.4-12.4); Platelet Count 168 K/mcL (140-400); Red Blood Count 3.52 M/mcL (4.19-5.50); Red Cell Distribution Width 15.2 % (11.5-14.5); White Blood Count 23.6 K/mcL (4.3-11.1)
[2020-05-01 04:22] LABS: BUN/Creatinine Ratio 47 (6-26); Blood Urea Nitrogen 40 mg/dL (6-20); Calcium 6.9 mg/dL (8.6-10.3); Carbon Dioxide 29 mEq/L (23-29); Chloride 104 mEq/L (98-107); Glucose 168 mg/dL (70-105); Magnesium 1.9 mg/dL (1.6-2.6); Osmolality,Calculated 292 (280-300); Potassium 5.1 mEq/L (3.5-5.1); Sodium 134 mEq/L (136-145); eGFR For African Americans > 60 (> 60); eGFR For Non-African Americans > 60 (> 60)
[2020-05-01] MEDS: Famotidine 20 MG/2 ML VIAL IVP SCH ×2 (05:23→18:03)
[2020-05-01] MEDS: *HR* Heparin 5,000 UNIT/ML VIAL SQ SCH ×3 (05:26→23:30)
[2020-05-01] MEDS: Piperacillin/Tazobactam 3.375 GM in 0.9 % Sodium Chloride Mini Bag 100 ML IVPB SCH ×3 (09:04→23:20)
[2020-05-01] MEDS: 0.9 % Sodium Chloride 1,000 ML IVC SCH ×3 (13:12→20:52)
[2020-05-01] MEDS ORDERED: Clinimix E 5%-20% SOLUTION 2,000 ML with MVI, adult with vitamin K 10 ML IVC SCH (17:00)
[2020-05-01] MEDS: Morphine PCA 30 MG/ 30 ML 30 ML PCA.VIAL IVC SCH ×2 (17:11→23:24)
[2020-05-01] MEDS ORDERED: *HR* Dextrose 50 % in Water (Vial) 50 ML VIAL ONE (23:01)
[2020-05-01] MEDS ORDERED: *HR* Dextrose 50 % in Water (Vial) 50 ML VIAL IVP ONE (23:04)
[2020-05-01] MEDS ORDERED: Ringers Solution, Lactated 1,000 ML IVC ONE (23:04)
[2020-05-02] MEDS: 0.9 % Sodium Chloride 1,000 ML IVC SCH ×5 (00:52→19:58)
[2020-05-02 04:02] LABS: Hematocrit 33.6 % (37.5-50.1)
[2020-05-02 04:04] LABS: Hemoglobin 10.8 g/dL (12.9-16.9); Mean Corpuscular HGB Conc 32.1 g/dL (31.6-35.5); Mean Corpuscular Hemoglobin 31.1 pg (28.0-33.3); Mean Corpuscular Volume 96.8 fL (83.0-100.0); Mean Platelet Volume 11.9 fL (9.4-12.4); Platelet Count 173 K/mcL (140-400); Red Blood Count 3.47 M/mcL (4.19-5.50); Red Cell Distribution Width 15.6 % (11.5-14.5)
[2020-05-02 04:08] LABS: White Blood Count 30.6 K/mcL (4.3-11.1)
[2020-05-02] MEDS: Ipratropium/Albuterol Neb 3 ML IH SCH ×6 (04:15→22:52)
[2020-05-02 04:22] LABS: BUN/Creatinine Ratio 53 (6-26); Blood Urea Nitrogen 39 mg/dL (6-20); Calcium 6.5 mg/dL (8.6-10.3); Carbon Dioxide 25 mEq/L (23-29); Chloride 107 mEq/L (98-107); Glucose 164 mg/dL (70-105); Magnesium 1.8 mg/dL (1.6-2.6); Osmolality,Calculated 289 (280-300); Potassium 4.4 mEq/L (3.5-5.1); Sodium 133 mEq/L (136-145); eGFR For African Americans > 60 (> 60); eGFR For Non-African Americans > 60 (> 60)
[2020-05-02] MEDS: *HR* Heparin 5,000 UNIT/ML VIAL SQ SCH ×3 (05:31→22:03)
[2020-05-02] MEDS: Famotidine 20 MG/2 ML VIAL IVP SCH ×2 (05:31→17:02)
[2020-05-02] MEDS: Insulin LISPRO 300 UNITS/3 ML VIAL SUBQ SCH ×3 (05:45→18:08)
[2020-05-02] MEDS: Piperacillin/Tazobactam 3.375 GM in 0.9 % Sodium Chloride Mini Bag 100 ML IVPB SCH ×2 (08:14→15:44)
[2020-05-02] MEDS: Vancomycin 1,250 MG/262.5 ML IV.SOLN IVPB SCH ×2 (11:41→23:10)
[2020-05-02 14:54] LABS: Alanine Aminotransferase 12 Units/L (7-52); Albumin 1.5 g/dL (3.5-5.7); Albumin/Globulin Ratio 0.7 (1.1-2.2); Alkaline Phosphatase 91 Units/L (34-104); Aspartate Amino Transferase 20 Units/L (13-39); Bilirubin,Direct 0.9 mg/dL (0.0-0.2); Bilirubin,Indirect 0.5 mg/dL (0.0-1.0); Bilirubin,Total 1.4 mg/dL (0.3-1.0); Globulin 2.2 g/dL (2.4-3.5); Total Protein 3.7 g/dL (6.4-8.9)
[2020-05-02] MEDS ORDERED: Clinimix E 5%-20% SOLUTION 2,000 ML with MVI, adult with vitamin K 10 ML IVC SCH (17:00)
[2020-05-02] MEDS ORDERED: 0.9 % Sodium Chloride 1,000 ML IV ONE (18:32)
[2020-05-02] MEDS: Albumin Human 5% 12.5 GM/250 ML IV.SOLN IVPB ONE (19:58)
[2020-05-02] MEDS ORDERED: Albumin Human 5% 12.5 GM/250 ML IV.SOLN IVPB ONE (20:30)
[2020-05-02] MEDS ORDERED: Ringers Solution, Lactated 1,000 ML IVC ONE ×2 (21:32→22:30)
[2020-05-03] MEDS: Piperacillin/Tazobactam 3.375 GM in 0.9 % Sodium Chloride Mini Bag 100 ML IVPB SCH ×4 (00:22→23:23)
[2020-05-03] MEDS: Insulin LISPRO 300 UNITS/3 ML VIAL SUBQ SCH ×5 (00:23→23:54)
[2020-05-03] MEDS ORDERED: Furosemide 20 MG/2 ML VIAL IVP ONE (02:08)
[2020-05-03] MEDS ORDERED: 0.9 % Sodium Chloride 1,000 ML IVC SCH (02:10)
[2020-05-03] MEDS ORDERED: Norepinephrine 4 MG/254 ML IV.SOLN IVC SCH (02:15)
[2020-05-03] MEDS: Ipratropium/Albuterol Neb 3 ML IH SCH ×5 (04:12→20:27)
[2020-05-03 04:14] LABS: Hematocrit 32.6 % (37.5-50.1); Hemoglobin 10.6 g/dL (12.9-16.9); Mean Corpuscular HGB Conc 32.5 g/dL (31.6-35.5); Mean Corpuscular Hemoglobin 31.7 pg (28.0-33.3); Mean Corpuscular Volume 97.6 fL (83.0-100.0); Mean Platelet Volume 11.6 fL (9.4-12.4); Platelet Count 208 K/mcL (140-400); Red Blood Count 3.34 M/mcL (4.19-5.50); Red Cell Distribution Width 16.1 % (11.5-14.5); White Blood Count 29.9 K/mcL (4.3-11.1)
[2020-05-03 04:27] LABS: BUN/Creatinine Ratio 50 (6-26); Blood Urea Nitrogen 29 mg/dL (6-20); Calcium 6.3 mg/dL (8.6-10.3); Carbon Dioxide 21 mEq/L (23-29); Chloride 109 mEq/L (98-107); Glucose 144 mg/dL (70-105); Magnesium 2.1 mg/dL (1.6-2.6); Osmolality,Calculated 288 (280-300); Phosphorous 1.7 mg/dL (2.7-4.5); Potassium 3.9 mEq/L (3.5-5.1); Sodium 135 mEq/L (136-145); eGFR For African Americans > 60 (> 60); eGFR For Non-African Americans > 60 (> 60)
[2020-05-03] MEDS: *HR* Heparin 5,000 UNIT/ML VIAL SQ SCH ×3 (05:37→19:42)
[2020-05-03] MEDS: Famotidine 20 MG/2 ML VIAL IVP SCH ×2 (05:37→17:29)
[2020-05-03 06:24] LABS: Chol/HDL Ratio 9.3 (0-4.9); Cholesterol 112 mg/dL (< 200); HDL Cholesterol 12 mg/dL (40-59); LDL Cholesterol,Calculated 63 mg/dL (< 100); Triglycerides 187 mg/dL (< 150)
[2020-05-03] MEDS ORDERED: Heparin 1,000 UNITS/500 mL 500 ML ONE (07:34)
[2020-05-03] MEDS ORDERED: *HR* FentaNYL (PF) 100 MCG/2 ML VIAL ONE (08:11)
[2020-05-03] MEDS ORDERED: *HR* Propofol 200 MG/20 ML VIAL IVP ONE (08:11)
[2020-05-03] MEDS ORDERED: *HR* Succinylcholine 200 MG/10 ML VIAL IVP ONE (08:12)
[2020-05-03] MEDS ORDERED: *HR* Rocuronium Bromide 50 MG/5 ML VIAL ONE (08:12)
[2020-05-03] MEDS ORDERED: Dexamethasone 4 MG/ML VIAL ONE (08:12)
[2020-05-03] MEDS ORDERED: Ondansetron 4 MG/2 ML VIAL ONE (08:12)
[2020-05-03] MEDS ORDERED: Lidocaine -MPF 2% 2 ML VIAL ONE ×2 (08:12→09:52)
[2020-05-03] MEDS ORDERED: Lidocaine HCL 4 ML Topical Solution (Laryng-O-Jet Kit Sterile Pak) TP ONE (08:12)
[2020-05-03] MEDS ORDERED: EPHEDrine 50 MG/ML VIAL ONE (08:13)
[2020-05-03] MEDS ORDERED: *HR* PHENYLEPHRINE 1,000 MCG/10 ML SYRINGE IVP ONE (08:13)
[2020-05-03] MEDS ORDERED: *HR* Phenylephrine 10 MG/ML VIAL ONE (08:14)
[2020-05-03] MEDS ORDERED: *HR* Etomidate 40 MG/20 ML VIAL IVP ONE (08:26)
[2020-05-03] MEDS ORDERED: Doxycycline 800 MG, Syringe LUER-LOK 1 EACH in 0.9 % Sodium Chloride 50 ML IX ONE ×2 (09:00→10:00)
[2020-05-03] MEDS ORDERED: *HR* HYDROMORPHONE 2 MG/ML VIAL ONE (09:37)
[2020-05-03] MEDS ORDERED: Clinimix E 5%-20% SOLUTION 2,000 ML with MVI, adult with vitamin K 10 ML IVC SCH (10:55)
[2020-05-03] MEDS ORDERED: Ondansetron 4 MG/2 ML VIAL IVP PRN (10:55)
[2020-05-03] MEDS: 0.9 % Sodium Chloride 1,000 ML IVC SCH (11:45)
[2020-05-03] MEDS: Norepinephrine 4 MG/254 ML IV.SOLN IVC SCH (11:46)
[2020-05-03] MEDS: Vancomycin 1,250 MG/262.5 ML IV.SOLN IVPB SCH (11:59)
[2020-05-03] MEDS: Morphine PCA 30 MG/ 30 ML 30 ML PCA.VIAL IVC SCH (12:13)
[2020-05-03] MEDS: Clinimix 5%-20% SOLUTION 2,000 ML with MVI, adult with vitamin K 10 ML, Sodium Chlori... IVC SCH (16:54)
[2020-05-03] MEDS ORDERED: Clinimix 5%-20% SOLUTION 2,000 ML with MVI, adult with vitamin K 10 ML, Sodium Chlori... IVC SCH (17:00)
[2020-05-03] MEDS ORDERED: Clinimix 5%-20% SOLUTION 2,000 ML with MVI, adult with vitamin K 10 ML IVC SCH (17:00)
[2020-05-04] MEDS: Ipratropium/Albuterol Neb 3 ML IH SCH ×7 (00:20→23:07)
[2020-05-04] MEDS: 0.9 % Sodium Chloride 1,000 ML IVC SCH ×2 (02:29→12:41)
[2020-05-04] MEDS: Vancomycin 1,250 MG/262.5 ML IV.SOLN IVPB SCH ×2 (02:41→14:00)
[2020-05-04] MEDS: Morphine PCA 30 MG/ 30 ML 30 ML PCA.VIAL IVC SCH ×2 (03:33→18:20)
[2020-05-04 04:57] LABS: Hematocrit 29.1 % (37.5-50.1); Hemoglobin 9.4 g/dL (12.9-16.9); Mean Corpuscular HGB Conc 32.3 g/dL (31.6-35.5); Mean Corpuscular Hemoglobin 31.1 pg (28.0-33.3); Mean Corpuscular Volume 96.4 fL (83.0-100.0); Mean Platelet Volume 11.9 fL (9.4-12.4); Platelet Count 228 K/mcL (140-400); Red Blood Count 3.02 M/mcL (4.19-5.50); Red Cell Distribution Width 16.8 % (11.5-14.5)
[2020-05-04 05:09] LABS: White Blood Count 40.2 K/mcL (4.3-11.1)
[2020-05-04 05:20] LABS: BUN/Creatinine Ratio 43 (6-26); Blood Urea Nitrogen 38 mg/dL (6-20); Calcium 6.7 mg/dL (8.6-10.3); Carbon Dioxide 21 mEq/L (23-29); Chloride 110 mEq/L (98-107); Glucose 176 mg/dL (70-105); Magnesium 1.8 mg/dL (1.6-2.6); Osmolality,Calculated 293 (280-300); Phosphorous 3.5 mg/dL (2.7-4.5); Potassium 4.4 mEq/L (3.5-5.1); Sodium 135 mEq/L (136-145); eGFR For African Americans > 60 (> 60); eGFR For Non-African Americans > 60 (> 60)
[2020-05-04] MEDS: Piperacillin/Tazobactam 3.375 GM in 0.9 % Sodium Chloride Mini Bag 100 ML IVPB SCH ×3 (08:06→23:45)
[2020-05-04] MEDS: Famotidine 20 MG/2 ML VIAL IVP SCH ×2 (08:09→17:24)
[2020-05-04] MEDS: *HR* Heparin 5,000 UNIT/ML VIAL SQ SCH ×3 (08:10→19:36)
[2020-05-04] MEDS: Insulin LISPRO 300 UNITS/3 ML VIAL SUBQ SCH ×4 (08:15→23:46)
[2020-05-04 09:38] LABS: Bacteria,Urine Few per hpf (None-Few); Bilirubin,Urine Negative (Negative); Blood,Urine Negative (Negative); Clarity,Urine Turbid (Clear); Color,Urine Dark-Yellow (Yellow); Glucose,Urine (UA) Normal (Normal); Ketones,Urine Negative (Negative); Leukocyte Esterase,Urine Negative (Negative); Mucus,Urine Few per lpf (None-Few); Nitrite,Urine Negative (Negative); Protein,Urine 50 mg/dL (Neg-Trace); RBC,Urine 15-30 per hpf (0-3); Specific Gravity,Urine 1.028 (1.010-1.025); Squamous Epithelial Cell,Urine Few per hpf (None-Few); Urobilinogen,Urine Normal (Normal); WBC,Urine 0-3 per hpf (0-3)
[2020-05-04] MEDS: Norepinephrine 4 MG/254 ML IV.SOLN IVC SCH ×2 (10:15→19:52)
[2020-05-04] MEDS ORDERED: Albumin Human 5% 12.5 GM/250 ML IV.SOLN IVC SCH (12:15)
[2020-05-04] MEDS: Micafungin 100 MG in 0.9 % Sodium Chloride Mini Bag 100 ML IVPB SCH (12:50)
[2020-05-04] MEDS: Albumin Human 5% 12.5 GM/250 ML IV.SOLN IVPB ONE (13:07)
[2020-05-04] MEDS ORDERED: Calcium Chloride 1,000 MG in 0.9 % Sodium Chloride 100 ML IVPB ONE (13:26)
[2020-05-04] MEDS ORDERED: Isovue-370 500 ML BOTTLE IVP ONE (13:36)
[2020-05-04 15:01] LABS: ABG Base Excess -5 mEq/L (-2 to 3); ABG HCO3 21 mEq/L (21-27); ABG Oxygen Saturation 85 % (95-98); ABG PCO2 41 mmHg (35-45); ABG PH 7.31 pH Units (7.32-7.45); ABG PO2 54 mmHg (85-104); ABG TCO2 22 mEq/L (20-26)
[2020-05-04] MEDS: Clinimix E 5%-20% SOLUTION 2,000 ML with MVI, adult with vitamin K 10 ML IVC SCH (16:40)
[2020-05-04 16:42] LABS: VBG Ionized Calcium 1.27 mmol/L (1.15-1.35)
[2020-05-04 16:51] LABS: BUN/Creatinine Ratio 36 (6-26); Blood Urea Nitrogen 47 mg/dL (6-20); Calcium 7.7 mg/dL (8.6-10.3); Carbon Dioxide 22 mEq/L (23-29); Chloride 112 mEq/L (98-107); Glucose 128 mg/dL (70-105); Osmolality,Calculated 296 (280-300); Potassium 4.4 mEq/L (3.5-5.1); Sodium 136 mEq/L (136-145); eGFR For African Americans > 60 (> 60); eGFR For Non-African Americans 56 (> 60)
[2020-05-04] MEDS ORDERED: Clinimix 5%-20% SOLUTION 2,000 ML with MVI, adult with vitamin K 10 ML, Sodium Chlori... IVC SCH (17:00)
[2020-05-04] MEDS: Clinimix 5%-20% SOLUTION 2,000 ML with MVI, adult with vitamin K 10 ML, Sodium Chlori... IVC SCH (17:25)
[2020-05-04] MEDS: Albumin Human 5% 12.5 GM/250 ML IV.SOLN IVC SCH ×2 (18:32→21:16)
[2020-05-05] MEDS: Vancomycin 1,250 MG/262.5 ML IV.SOLN IVPB SCH (01:10)
[2020-05-05] MEDS: Ipratropium/Albuterol Neb 3 ML IH SCH ×5 (03:47→20:31)
[2020-05-05 04:00] LABS: Hemoglobin 7.6 g/dL (12.9-16.9); Mean Corpuscular HGB Conc 31.7 g/dL (31.6-35.5); Mean Corpuscular Hemoglobin 31.5 pg (28.0-33.3); Mean Corpuscular Volume 99.6 fL (83.0-100.0); Mean Platelet Volume 11.7 fL (9.4-12.4); Platelet Count 229 K/mcL (140-400); Red Blood Count 2.41 M/mcL (4.19-5.50); Red Cell Distribution Width 17.2 % (11.5-14.5)
[2020-05-05 04:10] LABS: White Blood Count 32.5 K/mcL (4.3-11.1)
[2020-05-05 04:19] LABS: BUN/Creatinine Ratio 37 (6-26); Blood Urea Nitrogen 50 mg/dL (6-20); Calcium 7.1 mg/dL (8.6-10.3); Carbon Dioxide 20 mEq/L (23-29); Chloride 112 mEq/L (98-107); Glucose 142 mg/dL (70-105); Magnesium 2.4 mg/dL (1.6-2.6); Osmolality,Calculated 300 (280-300); Phosphorous 3.9 mg/dL (2.7-4.5); Potassium 4.3 mEq/L (3.5-5.1); Sodium 137 mEq/L (136-145); eGFR For African Americans > 60 (> 60); eGFR For Non-African Americans 54 (> 60)
[2020-05-05] MEDS: Norepinephrine 4 MG/254 ML IV.SOLN IVC SCH ×3 (04:24→23:37)
[2020-05-05] MEDS: Insulin LISPRO 300 UNITS/3 ML VIAL SUBQ SCH ×4 (05:43→23:37)
[2020-05-05] MEDS: *HR* Heparin 5,000 UNIT/ML VIAL SQ SCH ×3 (05:43→19:49)
[2020-05-05] MEDS: Famotidine 20 MG/2 ML VIAL IVP SCH ×2 (05:44→17:37)
[2020-05-05 05:45] LABS: ABG Base Excess -5 mEq/L (-2 to 3); ABG HCO3 21 mEq/L (21-27); ABG Oxygen Saturation 88 % (95-98); ABG PCO2 40 mmHg (35-45); ABG PH 7.32 pH Units (7.32-7.45); ABG PO2 59 mmHg (85-104); ABG TCO2 22 mEq/L (20-26)
[2020-05-05] MEDS: 0.9 % Sodium Chloride 1,000 ML IVC SCH (06:12)
[2020-05-05] MEDS: Piperacillin/Tazobactam 3.375 GM in 0.9 % Sodium Chloride Mini Bag 100 ML IVPB SCH ×3 (07:52→23:36)
[2020-05-05] MEDS: Micafungin 100 MG in 0.9 % Sodium Chloride Mini Bag 100 ML IVPB SCH (07:56)
[2020-05-05] MEDS ORDERED: Calcium Chloride 1,000 MG in 0.9 % Sodium Chloride 100 ML IVPB ONE (08:58)
[2020-05-05] MEDS ORDERED: 0.9 % Sodium Chloride 250 ML ONE (09:28)
[2020-05-05] MEDS: Budesonide/Formoterol 160/4.5 1 PUFF INH IH SCH ×2 (11:37→20:31)
[2020-05-05 12:55] LABS: Hematocrit 29.7 % (37.5-50.1); Mean Platelet Volume 11.4 fL (9.4-12.4)
[2020-05-05 12:56] LABS: Hemoglobin 9.6 g/dL (12.9-16.9); Mean Corpuscular HGB Conc 32.3 g/dL (31.6-35.5); Mean Corpuscular Hemoglobin 31.8 pg (28.0-33.3); Mean Corpuscular Volume 98.3 fL (83.0-100.0); Platelet Count 225 K/mcL (140-400); Red Blood Count 3.02 M/mcL (4.19-5.50); Red Cell Distribution Width 16.7 % (11.5-14.5); White Blood Count 28.5 K/mcL (4.3-11.1)
[2020-05-05 13:00] LABS: VBG Ionized Calcium 1.14 mmol/L (1.15-1.35)
[2020-05-05 15:32] LABS: Nucleated Red Blood Cells 0.1 /100 WBC (0)
[2020-05-05 15:34] LABS: Hematocrit 30.7 % (37.5-50.1); Hemoglobin 9.8 g/dL (12.9-16.9); Mean Corpuscular HGB Conc 31.9 g/dL (31.6-35.5); Mean Corpuscular Hemoglobin 31.5 pg (28.0-33.3); Mean Corpuscular Volume 98.7 fL (83.0-100.0); Mean Platelet Volume 11.7 fL (9.4-12.4); Platelet Count 244 K/mcL (140-400); Red Blood Count 3.11 M/mcL (4.19-5.50); Red Cell Distribution Width 16.9 % (11.5-14.5); White Blood Count 27.3 K/mcL (4.3-11.1)
[2020-05-05 16:16] LABS: Lymphocytes # 1.1 K/mcL (0.6-4.6); Monocytes # 0.8 K/mcL (0.0-1.3); Neutrophils # 25.1 K/mcL (1.6-8.9)
[2020-05-05 16:17] LABS: Polychromasia 1+ (Not Present)
[2020-05-05] MEDS ORDERED: Clinimix E 5%-20% SOLUTION 2,000 ML with MVI, adult with vitamin K 10 ML IVC SCH (17:00)
[2020-05-05] MEDS: Clinimix E 5%-20% SOLUTION 2,000 ML with MVI, adult with vitamin K 10 ML IVC SCH (17:38)
[2020-05-06] MEDS: Ipratropium/Albuterol Neb 3 ML IH SCH ×6 (00:18→20:19)
[2020-05-06] MEDS: Morphine PCA 30 MG/ 30 ML 30 ML PCA.VIAL IVC SCH (00:28)
[2020-05-06 04:01] LABS: Hematocrit 30.7 % (37.5-50.1); Hemoglobin 9.7 g/dL (12.9-16.9); Mean Corpuscular HGB Conc 31.6 g/dL (31.6-35.5); Mean Corpuscular Volume 98.1 fL (83.0-100.0); Mean Platelet Volume 11.3 fL (9.4-12.4); Platelet Count 206 K/mcL (140-400); Red Blood Count 3.13 M/mcL (4.19-5.50); Red Cell Distribution Width 17.6 % (11.5-14.5); White Blood Count 19.7 K/mcL (4.3-11.1)
[2020-05-06 04:15] LABS: Prothrombin Time 12.1 Seconds (9.4-12.1)
[2020-05-06 04:18] LABS: Activated Partial Thrombo Time 39.2 Seconds (26.0-36.0)
[2020-05-06 04:28] LABS: Alanine Aminotransferase 13 Units/L (7-52); Albumin 1.7 g/dL (3.5-5.7); Albumin/Globulin Ratio 0.8 (1.1-2.2); Alkaline Phosphatase 80 Units/L (34-104); Aspartate Amino Transferase 33 Units/L (13-39); BUN/Creatinine Ratio 45 (6-26); Bilirubin,Total 3.2 mg/dL (0.3-1.0); Blood Urea Nitrogen 53 mg/dL (6-20); Calcium 7.4 mg/dL (8.6-10.3); Carbon Dioxide 20 mEq/L (23-29); Chloride 114 mEq/L (98-107); Globulin 2.1 g/dL (2.4-3.5); Glucose 160 mg/dL (70-105); Magnesium 2.3 mg/dL (1.6-2.6); Osmolality,Calculated 302 (280-300); Phosphorous 3.3 mg/dL (2.7-4.5); Potassium 4.3 mEq/L (3.5-5.1); Sodium 137 mEq/L (136-145); Total Protein 3.8 g/dL (6.4-8.9); eGFR For African Americans > 60 (> 60); eGFR For Non-African Americans > 60 (> 60)
[2020-05-06] MEDS: Insulin LISPRO 300 UNITS/3 ML VIAL SUBQ SCH ×4 (04:55→23:20)
[2020-05-06] MEDS: Famotidine 20 MG/2 ML VIAL IVP SCH ×2 (05:33→17:01)
[2020-05-06] MEDS: *HR* Heparin 5,000 UNIT/ML VIAL SQ SCH ×3 (05:33→22:24)
[2020-05-06] MEDS: Budesonide/Formoterol 160/4.5 1 PUFF INH IH SCH ×2 (07:26→20:20)
[2020-05-06] MEDS: Micafungin 100 MG in 0.9 % Sodium Chloride Mini Bag 100 ML IVPB SCH (08:00)
[2020-05-06] MEDS: Piperacillin/Tazobactam 3.375 GM in 0.9 % Sodium Chloride Mini Bag 100 ML IVPB SCH ×3 (08:00→23:22)
[2020-05-06 09:06] LABS: Albumin 1.7 g/dL (3.5-5.7); Albumin/Globulin Ratio 0.8 (1.1-2.2); Bilirubin,Direct 2.6 mg/dL (0.0-0.2); Bilirubin,Indirect 0.7 mg/dL (0.0-1.0); Bilirubin,Total 3.3 mg/dL (0.3-1.0); Globulin 2.1 g/dL (2.4-3.5); Total Protein 3.8 g/dL (6.4-8.9)
[2020-05-06] MEDS ORDERED: Furosemide 20 MG/2 ML VIAL IVP ONE (09:13)
[2020-05-06] MEDS ORDERED: Furosemide 40 MG/4 ML VIAL IVP ONE (09:38)
[2020-05-06] MEDS: 0.9 % Sodium Chloride 1,000 ML IVC SCH ×2 (15:10→23:20)
[2020-05-06] MEDS ORDERED: Clinimix E 5%-20% SOLUTION 2,000 ML with MVI, adult with vitamin K 10 ML IVC SCH (17:00)
[2020-05-06] MEDS: Norepinephrine 4 MG/254 ML IV.SOLN IVC SCH (23:18)
[2020-05-07] MEDS: Ipratropium/Albuterol Neb 3 ML IH SCH ×6 (00:10→19:56)
[2020-05-07 03:48] LABS: Hematocrit 32.7 % (37.5-50.1); Hemoglobin 10.2 g/dL (12.9-16.9); Mean Corpuscular HGB Conc 31.2 g/dL (31.6-35.5); Mean Corpuscular Hemoglobin 30.5 pg (28.0-33.3); Mean Corpuscular Volume 97.9 fL (83.0-100.0); Mean Platelet Volume 11.8 fL (9.4-12.4); Platelet Count 233 K/mcL (140-400); Red Blood Count 3.34 M/mcL (4.19-5.50); White Blood Count 16.2 K/mcL (4.3-11.1)
[2020-05-07 04:09] LABS: Alanine Aminotransferase 19 Units/L (7-52); Albumin 1.6 g/dL (3.5-5.7); Albumin/Globulin Ratio 0.7 (1.1-2.2); Alkaline Phosphatase 90 Units/L (34-104); Aspartate Amino Transferase 40 Units/L (13-39); BUN/Creatinine Ratio 47 (6-26); Bilirubin,Indirect 0.9 mg/dL (0.0-1.0); Bilirubin,Total 3.9 mg/dL (0.3-1.0); Blood Urea Nitrogen 59 mg/dL (6-20); Calcium 7.3 mg/dL (8.6-10.3); Carbon Dioxide 22 mEq/L (23-29); Chloride 115 mEq/L (98-107); Globulin 2.2 g/dL (2.4-3.5); Glucose 165 mg/dL (70-105); Magnesium 2.3 mg/dL (1.6-2.6); Osmolality,Calculated 308 (280-300); Phosphorous 3.2 mg/dL (2.7-4.5); Potassium 4.1 mEq/L (3.5-5.1); Sodium 139 mEq/L (136-145); Total Protein 3.8 g/dL (6.4-8.9); eGFR For African Americans > 60 (> 60); eGFR For Non-African Americans 59 (> 60)
[2020-05-07] MEDS: Famotidine 20 MG/2 ML VIAL IVP SCH ×2 (05:20→16:49)
[2020-05-07] MEDS: *HR* Heparin 5,000 UNIT/ML VIAL SQ SCH ×3 (05:20→22:07)
[2020-05-07] MEDS: Insulin LISPRO 300 UNITS/3 ML VIAL SUBQ SCH ×4 (05:27→23:43)
[2020-05-07] MEDS ORDERED: Ringers Solution, Lactated 1,000 ML ONE (06:35)
[2020-05-07] MEDS ORDERED: Ringers Solution, Lactated 1,000 ML IV ONE (06:40)
[2020-05-07] MEDS: Budesonide/Formoterol 160/4.5 1 PUFF INH IH SCH ×2 (07:42→19:56)
[2020-05-07] MEDS: Piperacillin/Tazobactam 3.375 GM in 0.9 % Sodium Chloride Mini Bag 100 ML IVPB SCH ×3 (08:45→23:37)
[2020-05-07] MEDS: Micafungin 100 MG in 0.9 % Sodium Chloride Mini Bag 100 ML IVPB SCH (08:45)
[2020-05-07] MEDS ORDERED: Furosemide 20 MG/2 ML VIAL IVP ONE (10:17)
[2020-05-07] MEDS: Morphine PCA 30 MG/ 30 ML 30 ML PCA.VIAL IVC SCH (16:00)
[2020-05-07] MEDS: Albumin 25% 12.5gm/50mL 12.5 GM/50 ML IV.SOLN IVPB SCH (16:45)
[2020-05-07] MEDS ORDERED: Clinimix E 5%-20% SOLUTION 2,000 ML with MVI, adult with vitamin K 10 ML IVC SCH ×2 (17:00)
[2020-05-08] MEDS: Albumin 25% 12.5gm/50mL 12.5 GM/50 ML IV.SOLN IVPB SCH (00:09)
[2020-05-08] MEDS: Norepinephrine 4 MG/254 ML IV.SOLN IVC SCH (01:35)
[2020-05-08] MEDS: Ipratropium/Albuterol Neb 3 ML IH SCH ×7 (03:41→23:22)
[2020-05-08 04:07] LABS: Hematocrit 30.4 % (37.5-50.1); Hemoglobin 9.4 g/dL (12.9-16.9); Mean Corpuscular HGB Conc 30.9 g/dL (31.6-35.5); Mean Corpuscular Hemoglobin 30.4 pg (28.0-33.3); Mean Corpuscular Volume 98.4 fL (83.0-100.0); Mean Platelet Volume 11.7 fL (9.4-12.4); Platelet Count 195 K/mcL (140-400); Red Blood Count 3.09 M/mcL (4.19-5.50); Red Cell Distribution Width 18.5 % (11.5-14.5); White Blood Count 14.8 K/mcL (4.3-11.1)
[2020-05-08 04:29] LABS: BUN/Creatinine Ratio 45 (6-26); Blood Urea Nitrogen 64 mg/dL (6-20); Calcium 7.2 mg/dL (8.6-10.3); Carbon Dioxide 21 mEq/L (23-29); Chloride 115 mEq/L (98-107); Glucose 167 mg/dL (70-105); Magnesium 2.3 mg/dL (1.6-2.6); Osmolality,Calculated 310 (280-300); Potassium 3.9 mEq/L (3.5-5.1); Sodium 139 mEq/L (136-145); eGFR For African Americans > 60 (> 60); eGFR For Non-African Americans 51 (> 60)
[2020-05-08] MEDS: Insulin LISPRO 300 UNITS/3 ML VIAL SUBQ SCH ×3 (05:24→17:18)
[2020-05-08] MEDS: *HR* Heparin 5,000 UNIT/ML VIAL SQ SCH ×3 (05:26→21:10)
[2020-05-08] MEDS: Famotidine 20 MG/2 ML VIAL IVP SCH ×2 (05:28→16:59)
[2020-05-08] MEDS: Micafungin 100 MG in 0.9 % Sodium Chloride Mini Bag 100 ML IVPB SCH (07:42)
[2020-05-08] MEDS: Piperacillin/Tazobactam 3.375 GM in 0.9 % Sodium Chloride Mini Bag 100 ML IVPB SCH ×2 (07:42→16:59)
[2020-05-08] MEDS: Budesonide/Formoterol 160/4.5 1 PUFF INH IH SCH ×2 (07:51→19:59)
[2020-05-08] MEDS ORDERED: Albumin 25% 12.5gm/50mL 12.5 GM/50 ML IV.SOLN IVPB SCH (08:00)
[2020-05-08] MEDS ORDERED: Ringers Solution, Lactated 1,000 ML IVC ONE ×2 (09:38→12:31)
[2020-05-08] MEDS: 0.9 % Sodium Chloride 1,000 ML IVC SCH (10:40)
[2020-05-08] MEDS ORDERED: *HR* Atropine Sulfate 1 MG/10 ML SYRINGE ONE (13:00)
[2020-05-08] MEDS ORDERED: Clinimix E 5%-20% SOLUTION 2,000 ML with MVI, adult with vitamin K 10 ML IVC SCH ×2 (17:00)
[2020-05-08] MEDS: Morphine PCA 30 MG/ 30 ML 30 ML PCA.VIAL IVC SCH (19:07)
[2020-05-09] MEDS: Piperacillin/Tazobactam 3.375 GM in 0.9 % Sodium Chloride Mini Bag 100 ML IVPB SCH ×4 (00:52→23:28)
[2020-05-09] MEDS: Insulin LISPRO 300 UNITS/3 ML VIAL SUBQ SCH ×5 (00:52→23:29)
[2020-05-09] MEDS: Ipratropium/Albuterol Neb 3 ML IH SCH ×6 (03:39→23:40)
[2020-05-09 04:27] LABS: Hematocrit 32.9 % (37.5-50.1); Hemoglobin 10.1 g/dL (12.9-16.9); Mean Corpuscular HGB Conc 30.7 g/dL (31.6-35.5); Mean Corpuscular Volume 100.9 fL (83.0-100.0); Mean Platelet Volume 11.7 fL (9.4-12.4); Platelet Count 226 K/mcL (140-400); Red Blood Count 3.26 M/mcL (4.19-5.50); Red Cell Distribution Width 18.7 % (11.5-14.5); White Blood Count 16.1 K/mcL (4.3-11.1)
[2020-05-09 04:48] LABS: BUN/Creatinine Ratio 51 (6-26); Blood Urea Nitrogen 59 mg/dL (6-20); Calcium 7.1 mg/dL (8.6-10.3); Carbon Dioxide 20 mEq/L (23-29); Chloride 117 mEq/L (98-107); Glucose 147 mg/dL (70-105); Magnesium 2.2 mg/dL (1.6-2.6); Osmolality,Calculated 311 (280-300); Phosphorous 3.3 mg/dL (2.7-4.5); Potassium 3.8 mEq/L (3.5-5.1); Sodium 141 mEq/L (136-145); eGFR For African Americans > 60 (> 60); eGFR For Non-African Americans > 60 (> 60)
[2020-05-09] MEDS: 0.9 % Sodium Chloride 1,000 ML IVC SCH ×2 (05:55→23:31)
[2020-05-09] MEDS: *HR* Heparin 5,000 UNIT/ML VIAL SQ SCH ×3 (05:55→20:55)
[2020-05-09] MEDS: Famotidine 20 MG/2 ML VIAL IVP SCH ×2 (05:55→17:56)
[2020-05-09] MEDS: Budesonide/Formoterol 160/4.5 1 PUFF INH IH SCH ×2 (07:43→20:14)
[2020-05-09] MEDS: Micafungin 100 MG in 0.9 % Sodium Chloride Mini Bag 100 ML IVPB SCH (09:12)
[2020-05-09] MEDS: Morphine PCA 30 MG/ 30 ML 30 ML PCA.VIAL IVC SCH (13:38)
[2020-05-09] MEDS: Albumin 25% 25gram/100mL 25 GM/100 ML IV.SOLN IVPB SCH ×2 (14:19→23:29)
[2020-05-09] MEDS ORDERED: Clinimix E 5%-20% SOLUTION 2,000 ML with MVI, adult with vitamin K 10 ML IVC SCH ×2 (17:00)
[2020-05-09] MEDS: Norepinephrine 4 MG/254 ML IV.SOLN IVC SCH (20:53)
[2020-05-10] MEDS: Ipratropium/Albuterol Neb 3 ML IH SCH ×5 (03:34→20:16)
[2020-05-10 04:01] LABS: Hematocrit 29.4 % (37.5-50.1); Hemoglobin 8.8 g/dL (12.9-16.9); Mean Corpuscular HGB Conc 29.9 g/dL (31.6-35.5); Mean Corpuscular Hemoglobin 30.9 pg (28.0-33.3); Mean Corpuscular Volume 103.2 fL (83.0-100.0); Mean Platelet Volume 11.7 fL (9.4-12.4); Nucleated Red Blood Cells 0.3 /100 WBC (0); Platelet Count 163 K/mcL (140-400); Red Blood Count 2.85 M/mcL (4.19-5.50); White Blood Count 16.9 K/mcL (4.3-11.1)
[2020-05-10 04:21] LABS: BUN/Creatinine Ratio 48 (6-26); Blood Urea Nitrogen 61 mg/dL (6-20); Calcium 7.3 mg/dL (8.6-10.3); Carbon Dioxide 20 mEq/L (23-29); Chloride 116 mEq/L (98-107); Glucose 143 mg/dL (70-105); Magnesium 2.3 mg/dL (1.6-2.6); Osmolality,Calculated 308 (280-300); Sodium 139 mEq/L (136-145); eGFR For African Americans > 60 (> 60); eGFR For Non-African Americans 59 (> 60)
[2020-05-10 04:23] LABS: Anisocytosis 1+ (Not Present); Neutrophils # 12.2 K/mcL (1.6-8.9); Platelet Estimate Normal (Normal)
[2020-05-10 04:24] LABS: Toxic Granulation Present (Not Present)
[2020-05-10 04:54] LABS: Phosphorous 3.4 mg/dL (2.7-4.5)
[2020-05-10] MEDS: Insulin LISPRO 300 UNITS/3 ML VIAL SUBQ SCH ×3 (06:02→18:12)
[2020-05-10] MEDS: *HR* Heparin 5,000 UNIT/ML VIAL SQ SCH ×3 (06:02→21:28)
[2020-05-10] MEDS: Famotidine 20 MG/2 ML VIAL IVP SCH ×2 (06:02→18:10)
[2020-05-10] MEDS: Budesonide/Formoterol 160/4.5 1 PUFF INH IH SCH ×2 (07:27→20:12)
[2020-05-10] MEDS ORDERED: Furosemide 20 MG/2 ML VIAL IVP ONE (07:50)
[2020-05-10] MEDS: Albumin 25% 25gram/100mL 25 GM/100 ML IV.SOLN IVPB SCH ×2 (07:50→16:24)
[2020-05-10] MEDS: Piperacillin/Tazobactam 3.375 GM in 0.9 % Sodium Chloride Mini Bag 100 ML IVPB SCH ×2 (07:51→16:30)
[2020-05-10] MEDS: Micafungin 100 MG in 0.9 % Sodium Chloride Mini Bag 100 ML IVPB SCH (08:08)
[2020-05-10 08:44] LABS: Hematocrit 29.2 % (37.5-50.1); Hemoglobin 8.7 g/dL (12.9-16.9); Mean Corpuscular HGB Conc 29.8 g/dL (31.6-35.5); Mean Corpuscular Hemoglobin 30.9 pg (28.0-33.3); Mean Corpuscular Volume 103.5 fL (83.0-100.0); Mean Platelet Volume 11.4 fL (9.4-12.4); Platelet Count 195 K/mcL (140-400); Red Blood Count 2.82 M/mcL (4.19-5.50); Red Cell Distribution Width 19.2 % (11.5-14.5); White Blood Count 21.1 K/mcL (4.3-11.1)
[2020-05-10 08:54] LABS: INR 1.1; Prothrombin Time 12.9 Seconds (9.4-12.1)
[2020-05-10 09:05] LABS: Albumin 2.4 g/dL (3.5-5.7); Albumin/Globulin Ratio 1.3 (1.1-2.2); Bilirubin,Direct 2.4 mg/dL (0.0-0.2); Bilirubin,Total 3.4 mg/dL (0.3-1.0); Globulin 1.9 g/dL (2.4-3.5); Total Protein 4.3 g/dL (6.4-8.9)
[2020-05-10] MEDS: Morphine PCA 30 MG/ 30 ML 30 ML PCA.VIAL IVC SCH (10:27)
[2020-05-10] MEDS: Norepinephrine 4 MG/254 ML IV.SOLN IVC SCH (12:31)
[2020-05-10] MEDS ORDERED: Clinimix E 5%-20% SOLUTION 2,000 ML with MVI, adult with vitamin K 10 ML IVC SCH ×2 (17:00)
[2020-05-11] MEDS: Ipratropium/Albuterol Neb 3 ML IH SCH ×6 (00:02→19:11)
[2020-05-11] MEDS: Albumin 25% 25gram/100mL 25 GM/100 ML IV.SOLN IVPB SCH ×2 (00:29→08:02)
[2020-05-11] MEDS: Insulin LISPRO 300 UNITS/3 ML VIAL SUBQ SCH ×4 (00:38→17:16)
[2020-05-11] MEDS: Piperacillin/Tazobactam 3.375 GM in 0.9 % Sodium Chloride Mini Bag 100 ML IVPB SCH ×3 (00:46→15:10)
[2020-05-11] MEDS: Morphine PCA 30 MG/ 30 ML 30 ML PCA.VIAL IVC SCH (00:55)
[2020-05-11 03:17] LABS: Hematocrit 27.6 % (37.5-50.1); Hemoglobin 8.2 g/dL (12.9-16.9); Mean Corpuscular HGB Conc 29.7 g/dL (31.6-35.5); Mean Corpuscular Hemoglobin 30.8 pg (28.0-33.3); Mean Corpuscular Volume 103.8 fL (83.0-100.0); Mean Platelet Volume 11.3 fL (9.4-12.4); Nucleated Red Blood Cells 0.2 /100 WBC (0); Platelet Count 138 K/mcL (140-400); Red Blood Count 2.66 M/mcL (4.19-5.50); Red Cell Distribution Width 19.3 % (11.5-14.5); White Blood Count 17.1 K/mcL (4.3-11.1)
[2020-05-11 03:37] LABS: Monocytes # 0.7 K/mcL (0.0-1.3); Neutrophils # 13.3 K/mcL (1.6-8.9)
[2020-05-11 03:38] LABS: Platelet Estimate Slight Decrease (Normal); Toxic Granulation Present (Not Present)
[2020-05-11 03:42] LABS: BUN/Creatinine Ratio 48 (6-26); Blood Urea Nitrogen 61 mg/dL (6-20); Calcium 7.5 mg/dL (8.6-10.3); Carbon Dioxide 22 mEq/L (23-29); Chloride 116 mEq/L (98-107); Glucose 135 mg/dL (70-105); Magnesium 2.4 mg/dL (1.6-2.6); Osmolality,Calculated 313 (280-300); Phosphorous 3.4 mg/dL (2.7-4.5); Potassium 3.7 mEq/L (3.5-5.1); Sodium 142 mEq/L (136-145); eGFR For African Americans > 60 (> 60); eGFR For Non-African Americans 59 (> 60)
[2020-05-11] MEDS: *HR* Heparin 5,000 UNIT/ML VIAL SQ SCH ×3 (05:28→21:58)
[2020-05-11] MEDS: 0.9 % Sodium Chloride 1,000 ML IVC SCH (05:29)
[2020-05-11] MEDS: Famotidine 20 MG/2 ML VIAL IVP SCH ×2 (05:29→17:15)
[2020-05-11] MEDS: Budesonide/Formoterol 160/4.5 1 PUFF INH IH SCH ×2 (07:15→19:11)
[2020-05-11] MEDS: Micafungin 100 MG in 0.9 % Sodium Chloride Mini Bag 100 ML IVPB SCH (09:21)
[2020-05-11] MEDS: Norepinephrine 4 MG/254 ML IV.SOLN IVC SCH ×3 (11:23→20:54)
[2020-05-11] MEDS ORDERED: Clinimix E 5%-20% SOLUTION 2,000 ML with MVI, adult with vitamin K 10 ML IVC SCH ×2 (17:00)
[2020-05-12] MEDS: Insulin LISPRO 300 UNITS/3 ML VIAL SUBQ SCH ×5 (00:11→23:59)
[2020-05-12] MEDS: Ipratropium/Albuterol Neb 3 ML IH SCH ×7 (00:25→23:07)
[2020-05-12 04:54] LABS: Hematocrit 31.5 % (37.5-50.1); Hemoglobin 9.4 g/dL (12.9-16.9); Mean Corpuscular HGB Conc 29.8 g/dL (31.6-35.5); Mean Corpuscular Hemoglobin 31.3 pg (28.0-33.3); Platelet Count 163 K/mcL (140-400); Red Cell Distribution Width 19.9 % (11.5-14.5); White Blood Count 24.5 K/mcL (4.3-11.1)
[2020-05-12 05:06] LABS: BUN/Creatinine Ratio 46 (6-26); Blood Urea Nitrogen 53 mg/dL (6-20); Calcium 7.7 mg/dL (8.6-10.3); Carbon Dioxide 22 mEq/L (23-29); Chloride 117 mEq/L (98-107); Glucose 157 mg/dL (70-105); Magnesium 2.5 mg/dL (1.6-2.6); Osmolality,Calculated 314 (280-300); Phosphorous 2.8 mg/dL (2.7-4.5); Potassium 3.9 mEq/L (3.5-5.1); Sodium 143 mEq/L (136-145); eGFR For African Americans > 60 (> 60); eGFR For Non-African Americans > 60 (> 60)
[2020-05-12] MEDS: Famotidine 20 MG/2 ML VIAL IVP SCH ×2 (05:34→16:41)
[2020-05-12] MEDS: *HR* Heparin 5,000 UNIT/ML VIAL SQ SCH ×3 (05:34→21:52)
[2020-05-12] MEDS: Budesonide/Formoterol 160/4.5 1 PUFF INH IH SCH ×2 (07:36→19:50)
[2020-05-12] MEDS ORDERED: Furosemide 20 MG/2 ML VIAL IVP ONE (08:25)
[2020-05-12] MEDS: Piperacillin/Tazobactam 3.375 GM in 0.9 % Sodium Chloride Mini Bag 100 ML IVPB SCH ×4 (09:00→23:24)
[2020-05-12] MEDS: Micafungin 100 MG in 0.9 % Sodium Chloride Mini Bag 100 ML IVPB SCH (09:01)
[2020-05-12] MEDS: Morphine PCA 30 MG/ 30 ML 30 ML PCA.VIAL IVC SCH (10:16)
[2020-05-12] MEDS: Norepinephrine 4 MG/254 ML IV.SOLN IVC SCH ×2 (11:03→21:21)
[2020-05-12] MEDS ORDERED: Isovue-370 500 ML BOTTLE IVP ONE (11:38)
[2020-05-12 11:53] LABS: Lymphocytes # 0.7 K/mcL (0.6-4.6); Nucleated Red Blood Cells 0.1 /100 WBC (0)
[2020-05-12 12:25] LABS: Eosinophils # 0.5 K/mcL (0.0-0.6); Monocytes # 0.5 K/mcL (0.0-1.3); Neutrophils # 21.8 K/mcL (1.6-8.9); Platelet Estimate Normal (Normal)
[2020-05-12 12:26] LABS: Polychromasia 1+ (Not Present)
[2020-05-12 12:27] LABS: Anisocytosis 1+ (Not Present)
[2020-05-12] MEDS: 0.9 % Sodium Chloride 1,000 ML IVC SCH ×2 (12:29→21:52)
[2020-05-12] MEDS ORDERED: Clinimix E 5%-20% SOLUTION 2,000 ML with MVI, adult with vitamin K 10 ML IVC SCH (17:00)
[2020-05-13] MEDS: Ipratropium/Albuterol Neb 3 ML IH SCH ×6 (03:44→23:44)
[2020-05-13 04:02] LABS: Hematocrit 32.3 % (37.5-50.1); Hemoglobin 9.7 g/dL (12.9-16.9); Mean Corpuscular Hemoglobin 31.1 pg (28.0-33.3); Mean Corpuscular Volume 103.5 fL (83.0-100.0); Mean Platelet Volume 12.3 fL (9.4-12.4); Platelet Count 171 K/mcL (140-400); Red Blood Count 3.12 M/mcL (4.19-5.50); Red Cell Distribution Width 20.1 % (11.5-14.5); White Blood Count 23.2 K/mcL (4.3-11.1)
[2020-05-13 04:22] LABS: BUN/Creatinine Ratio 41 (6-26); Blood Urea Nitrogen 53 mg/dL (6-20); Calcium 7.4 mg/dL (8.6-10.3); Carbon Dioxide 21 mEq/L (23-29); Chloride 114 mEq/L (98-107); Glucose 183 mg/dL (70-105); Magnesium 2.5 mg/dL (1.6-2.6); Osmolality,Calculated 307 (280-300); Phosphorous 3.7 mg/dL (2.7-4.5); Potassium 3.9 mEq/L (3.5-5.1); Sodium 139 mEq/L (136-145); eGFR For African Americans > 60 (> 60); eGFR For Non-African Americans 58 (> 60)
[2020-05-13] MEDS: *HR* Heparin 5,000 UNIT/ML VIAL SQ SCH ×3 (05:46→21:50)
[2020-05-13] MEDS: Famotidine 20 MG/2 ML VIAL IVP SCH (05:46)
[2020-05-13] MEDS: Insulin LISPRO 300 UNITS/3 ML VIAL SUBQ SCH ×4 (05:46→23:54)
[2020-05-13] MEDS: Budesonide/Formoterol 160/4.5 1 PUFF INH IH SCH ×2 (07:35→19:41)
[2020-05-13] MEDS: Piperacillin/Tazobactam 3.375 GM in 0.9 % Sodium Chloride Mini Bag 100 ML IVPB SCH ×3 (08:34→23:41)
[2020-05-13] MEDS: Micafungin 100 MG in 0.9 % Sodium Chloride Mini Bag 100 ML IVPB SCH (08:35)
[2020-05-13 09:04] LABS: VBG Ionized Calcium 1.18 mmol/L (1.15-1.35)
[2020-05-13] MEDS: Morphine PCA 30 MG/ 30 ML 30 ML PCA.VIAL IVC SCH (10:49)
[2020-05-13 12:10] LABS: Alanine Aminotransferase 40 Units/L (7-52); Albumin 2.3 g/dL (3.5-5.7); Albumin/Globulin Ratio 0.9 (1.1-2.2); Alkaline Phosphatase 146 Units/L (34-104); Aspartate Amino Transferase 58 Units/L (13-39); Bilirubin,Direct 2.7 mg/dL (0.0-0.2); Bilirubin,Indirect 1.1 mg/dL (0.0-1.0); Bilirubin,Total 3.8 mg/dL (0.3-1.0); Globulin 2.5 g/dL (2.4-3.5); Lactate Dehydrogenase 199 Units/L (140-271); Total Protein 4.8 g/dL (6.4-8.9)
[2020-05-13] MEDS: 0.9 % Sodium Chloride 1,000 ML IVC SCH (14:40)
[2020-05-13 15:21] LABS: RBC,Pleural Fluid 2000 RBC/mcL
[2020-05-13 15:55] LABS: LDH,Pleural Fluid 166 Units/L (No Ref Range); Total Protein,Pleural Fluid < 2.0 g/dL
[2020-05-13] MEDS: Norepinephrine 4 MG/254 ML IV.SOLN IVC SCH (16:38)
[2020-05-13 16:40] LABS: VBG Ionized Calcium 1.17 mmol/L (1.15-1.35)
[2020-05-13 16:58] LABS: Appearance of Pleural Fl Clear (Clear)
[2020-05-13 16:59] LABS: Basophils,Pleural Fluid 0 %; Eosinophils,Pleural Fluid 0 %; Monocytes,Pleural Fluid 0 %
[2020-05-13] MEDS ORDERED: Clinimix E 5%-20% SOLUTION 2,000 ML with MVI, adult with vitamin K 10 ML IVC SCH (17:00)
[2020-05-13] MEDS: *HR* OxyCODONE Oral Soln 5 MG/5 ML UD.LIQ GTUBE PRN (17:40)
[2020-05-13] MEDS: Famotidine 20 MG TABLET PO SCH (20:11)
[2020-05-14] MEDS: Ipratropium/Albuterol Neb 3 ML IH SCH ×6 (03:38→23:52)
[2020-05-14 04:31] LABS: Hematocrit 35.1 % (37.5-50.1); Hemoglobin 10.5 g/dL (12.9-16.9); Mean Corpuscular HGB Conc 29.9 g/dL (31.6-35.5); Mean Corpuscular Hemoglobin 31.5 pg (28.0-33.3); Mean Corpuscular Volume 105.4 fL (83.0-100.0); Mean Platelet Volume 12.3 fL (9.4-12.4); Platelet Count 188 K/mcL (140-400); Red Blood Count 3.33 M/mcL (4.19-5.50); Red Cell Distribution Width 20.3 % (11.5-14.5); White Blood Count 18.2 K/mcL (4.3-11.1)
[2020-05-14 04:43] LABS: Albumin 1.9 g/dL (3.5-5.7); Albumin/Globulin Ratio 0.7 (1.1-2.2); Bilirubin,Indirect 0.8 mg/dL (0.0-1.0); Bilirubin,Total 2.8 mg/dL (0.3-1.0); Calcium 7.1 mg/dL (8.6-10.3); Globulin 2.8 g/dL (2.4-3.5); Magnesium 2.5 mg/dL (1.6-2.6); Phosphorous 4.5 mg/dL (2.7-4.5); Potassium 4.3 mEq/L (3.5-5.1); Total Protein 4.7 g/dL (6.4-8.9)
[2020-05-14] MEDS: 0.9 % Sodium Chloride 1,000 ML IVC SCH (05:26)
[2020-05-14] MEDS: *HR* Heparin 5,000 UNIT/ML VIAL SQ SCH ×3 (05:27→21:24)
[2020-05-14] MEDS: Insulin LISPRO 300 UNITS/3 ML VIAL SUBQ SCH ×3 (05:27→18:07)
[2020-05-14] MEDS: Budesonide/Formoterol 160/4.5 1 PUFF INH IH SCH ×2 (07:50→20:02)
[2020-05-14] MEDS: Piperacillin/Tazobactam 3.375 GM in 0.9 % Sodium Chloride Mini Bag 100 ML IVPB SCH ×2 (08:56→16:52)
[2020-05-14] MEDS: Micafungin 100 MG in 0.9 % Sodium Chloride Mini Bag 100 ML IVPB SCH (09:05)
[2020-05-14] MEDS: Famotidine 20 MG TABLET PO SCH ×2 (09:05→21:24)
[2020-05-14] MEDS ORDERED: 0.9 % Sodium Chloride 1,000 ML IV ONE (11:23)
[2020-05-14] MEDS ORDERED: Clinimix E 5%-20% SOLUTION 2,000 ML with MVI, adult with vitamin K 10 ML IVC SCH (17:00)
[2020-05-14] MEDS: *HR* OxyCODONE Oral Soln 5 MG/5 ML UD.LIQ GTUBE PRN (21:24)
[2020-05-14] MEDS: Norepinephrine 4 MG/254 ML IV.SOLN IVC SCH (21:33)
[2020-05-15] MEDS: Insulin LISPRO 300 UNITS/3 ML VIAL SUBQ SCH ×4 (00:03→18:44)
[2020-05-15] MEDS: 0.9 % Sodium Chloride 1,000 ML IVC SCH (00:03)
[2020-05-15] MEDS: Piperacillin/Tazobactam 3.375 GM in 0.9 % Sodium Chloride Mini Bag 100 ML IVPB SCH ×3 (00:06→16:41)
[2020-05-15] MEDS: Ipratropium/Albuterol Neb 3 ML IH SCH ×5 (03:37→19:23)
[2020-05-15 04:44] LABS: Hematocrit 36.3 % (37.5-50.1); Hemoglobin 10.9 g/dL (12.9-16.9); Mean Corpuscular Hemoglobin 31.4 pg (28.0-33.3); Mean Corpuscular Volume 104.6 fL (83.0-100.0); Mean Platelet Volume 12.5 fL (9.4-12.4); Platelet Count 263 K/mcL (140-400); Red Blood Count 3.47 M/mcL (4.19-5.50); White Blood Count 21.7 K/mcL (4.3-11.1)
[2020-05-15 04:56] LABS: Calcium 6.9 mg/dL (8.6-10.3); Magnesium 2.5 mg/dL (1.6-2.6); Potassium 4.5 mEq/L (3.5-5.1)
[2020-05-15] MEDS: *HR* Heparin 5,000 UNIT/ML VIAL SQ SCH ×2 (05:35→15:15)
[2020-05-15] MEDS: Norepinephrine 4 MG/254 ML IV.SOLN IVC SCH (05:38)
[2020-05-15] MEDS: Budesonide/Formoterol 160/4.5 1 PUFF INH IH SCH ×2 (07:40→19:21)
[2020-05-15] MEDS: Micafungin 100 MG in 0.9 % Sodium Chloride Mini Bag 100 ML IVPB SCH (08:53)
[2020-05-15] MEDS: Famotidine 20 MG TABLET PO SCH (08:53)
[2020-05-15] MEDS ORDERED: 0.9 % Sodium Chloride 2,000 ML IV ONE (08:56)
[2020-05-15] MEDS ORDERED: 0.9 % Sodium Chloride 1,000 ML IVC SCH ×2 (08:59→12:19)
[2020-05-15] MEDS ORDERED: D10% in Water 500 ML IVC PRN (11:02)
[2020-05-15] MEDS: *HR* OxyCODONE Oral Soln 5 MG/5 ML UD.LIQ GTUBE PRN (12:52)
[2020-05-15] MEDS: Albumin Human 5% 12.5 GM/250 ML IV.SOLN IVC SCH ×4 (16:39→19:29)
[2020-05-15] MEDS ORDERED: Clinimix E 5%-20% SOLUTION 2,000 ML with MVI, adult with vitamin K 10 ML IVC SCH (17:00)
[2020-05-15] MEDS ORDERED: Clinimix 5%-20% SOLUTION 2,000 ML with MVI, adult with vitamin K 10 ML, Sodium Acetat... IVC SCH (17:00)
[2020-05-15] MEDS ORDERED: Ringers Solution, Lactated 1,000 ML ONE (18:37)
[2020-05-15] MEDS ORDERED: Ringers Solution, Lactated 1,000 ML IVC ONE (18:40)
[2020-05-15 21:09] VITALS: BP 83/67
[2020-05-16] MEDS ORDERED: Famotidine 20 MG TABLET PO SCH (09:00)
[2020-05-16] MEDS ORDERED: Clinimix 5%-20% SOLUTION 2,000 ML with MVI, adult with vitamin K 10 ML, Sodium Acetat... IVC SCH (17:00)
[2020-05-16] MEDS ORDERED: Clinimix E 5%-20% SOLUTION 2,000 ML with MVI, adult with vitamin K 10 ML IVC SCH (17:00)
[2020-05-17] MEDS ORDERED: Clinimix 5%-20% SOLUTION 2,000 ML with MVI, adult with vitamin K 10 ML, Sodium Acetat... IVC SCH (17:00)
[2020-05-17] MEDS ORDERED: Clinimix E 5%-20% SOLUTION 2,000 ML with MVI, adult with vitamin K 10 ML IVC SCH (17:00)
== END 2020-05-15 21:23 | disposition short-term general hospital (02) | DRG 792 ==
LOC: 3ANU 09:46 → EMEROOARM 09:46 → 3ANU 13:30 → SUATTDRO 04-21 16:08 → ICNU 04-22 17:25
PROVIDERS: ADMIT Internal Medicine; ATTEND Thoracic Surgery (Cardiothoracic Vascular Surgery)